=== PATIENT | male | born 1955 | race Caucasian/White ===

== ENCOUNTER → 2023-08-25 07:54 | Outpatient (REF) | payer BC, SELFPAY | LOC: DHVS 07:54 | PROVIDERS: ATTENDING PHYSICIAN Physician Assistant; FAMILY PHYSICIAN Student in an Organized Health Care Education/Training Program | DX: I73.9 Peripheral vascular disease, unspecified (principal) | CPT/HCPCS: 93922; 93925 ==

== ENCOUNTER 2024-08-26 06:23 | Day surgery (SDC) | payer BC, SELFPAY ==
[2024-08-26 12:16] LABS: Glucose - Point of Care 127 mg/dl (70-99)
== END 2024-08-26 13:08 | disposition home or self-care (01) ==
LOC: GI 06:23
PROVIDERS: ATTENDING PHYSICIAN Internal Medicine Gastroenterology
DX: Z12.11 Encounter for screening for malignant neoplasm of colon (principal); K64.8 Other hemorrhoids; K21.00 Gastro-esophageal reflux disease with esophagitis, without bleeding; K31.7 Polyp of stomach and duodenum; K29.70 Gastritis, unspecified, without bleeding; D12.5 Benign neoplasm of sigmoid colon; K63.5 Polyp of colon; D13.2 Benign neoplasm of duodenum; Z86.0100 Personal history of colon polyps, unspecified
CPT/HCPCS: 45380; 43239; 88305; 82962; 88342

== ENCOUNTER → 2024-08-29 08:08 | Outpatient (REF) | payer BC, SELFPAY | LOC: RAD 08:08 | PROVIDERS: ATTENDING PHYSICIAN Surgery Vascular Surgery; FAMILY PHYSICIAN Student in an Organized Health Care Education/Training Program | DX: I73.9 Peripheral vascular disease, unspecified (principal) | CPT/HCPCS: 93922; 93925 ==

== ENCOUNTER → 2024-09-16 12:20 | Outpatient (REF) | payer BC, SELFPAY ==
[2024-09-16 13:30] LABS: % Basophils 0.6 % (0-2); % Eosinophils 4.3 % (0-6); % Immature Granulocytes 0.3 % (0-0.5); % Lymphocytes 17.6 % (20.5-51.1); % Neutrophils 69.2 % (42.2-75.2); Absolute Basophils 0.1 10^3/uL (0-0.2); Absolute Eosinophils 0.4 10^3/uL (0-0.7); Absolute Lymphocytes 1.8 10^3/uL (1.2-3.4); Absolute Monocytes 0.8 10^3/uL (0.1-0.6); Absolute Neutrophils 6.9 10^3/uL (1.4-6.5); Hematocrit 36.2 % (39.0-52.0); Hemoglobin 11.5 g/dL (13.0-18.0); Mean Corp Hgb Conc. 31.8 g/dL (33.0-37.0); Mean Corpuscular Hgb 29.6 pg (27.0-31.0); Mean Corpuscular Volume 93.3 fL (80.0-94.0); Nucleated Red Blood Cells % 0 % (-); Platelet Count 201 10^3/uL (130-400); Red Blood Cell Count 3.88 10^6/uL (4.70-6.10); Red Cell Dist. Width 16.1 % (11.5-14.5)
[2024-09-16 14:01] LABS: Blood Urea Nitrogen 27 mg/dl (9-20); Calcium 9.8 mg/dl (8.4-10.2); Carbon Dioxide 23 mmol/L (22-30); Chloride 106 mmol/L (98-107); Glucose 168 mg/dl (70-99); Potassium 4.7 mmol/L (3.5-5.1); Sodium 144 mmol/L (135-145); eGFR > 60.00
[2024-09-16 14:03] LABS: NT-proBNP 2440 pg/ml
== END ==
LOC: RAD 12:20
PROVIDERS: ATTENDING PHYSICIAN Internal Medicine; FAMILY PHYSICIAN Student in an Organized Health Care Education/Training Program
DX: R06.02 Shortness of breath (principal); I48.0 Paroxysmal atrial fibrillation
CPT/HCPCS: 36415; 71046; 80048; 83880; 85025

== ENCOUNTER 2024-09-20 06:38 | Day surgery (SDC) | payer BC, SELFPAY ==
[2024-09-20 07:54] LABS: Glucose - Point of Care 99 mg/dl (70-99)
== END 2024-09-20 07:20 | disposition home or self-care (01) ==
LOC: CATH 06:38
PROVIDERS: ATTENDING PHYSICIAN Student in an Organized Health Care Education/Training Program; FAMILY PHYSICIAN Student in an Organized Health Care Education/Training Program; OTHER PHYSICIAN Student in an Organized Health Care Education/Training Program
DX: I48.0 Paroxysmal atrial fibrillation (principal); I11.0 Hypertensive heart disease with heart failure; I50.22 Chronic systolic (congestive) heart failure; E78.5 Hyperlipidemia, unspecified; I25.10 Atherosclerotic heart disease of native coronary artery without angina pectoris; I25.2 Old myocardial infarction; Z95.1 Presence of aortocoronary bypass graft; Z95.5 Presence of coronary angioplasty implant and graft; I25.5 Ischemic cardiomyopathy; I42.1 Obstructive hypertrophic cardiomyopathy; I08.2 Rheumatic disorders of both aortic and tricuspid valves; Z95.2 Presence of prosthetic heart valve; G47.33 Obstructive sleep apnea (adult) (pediatric); E11.9 Type 2 diabetes mellitus without complications; E03.9 Hypothyroidism, unspecified; Z85.828 Personal history of other malignant neoplasm of skin; Z87.891 Personal history of nicotine dependence; Z79.01 Long term (current) use of anticoagulants; Z79.02 Long term (current) use of antithrombotics/antiplatelets; Z79.84 Long term (current) use of oral hypoglycemic drugs
CPT/HCPCS: 93312; 93320; 93325; 82962

== ENCOUNTER 2024-10-30 06:46 | Day surgery (SDC) | payer BC, SELFPAY ==
--- NOTE | 2024-10-24 09:40 | HPS.HSE ---
Family Physician
-
Family Physician: Karyn Paige MD
Chief Complaint
-
Paroxysmal atrial fibrillation.
History of Present Illness
The patient is a 69-year-old male presenting today for paroxysmal atrial fibrillation. The patient reports a history of progressively worsening shortness of breath, especially with exertion, and rapid heart beats associated with this
diagnosis. He is on current pharmacological therapy with Metoprolol Succinate, which has been recently increased to 100 mg p.o. twice a day to treat his elevated heart rates. Cardiology recommended a BRANDI-guided cardioversion which was initially
scheduled for 09/20/2024. Unfortunately, his BRANDI revealed a left atrial appendage thrombus and his cardioversion was postponed. He has been compliant with Eliquis for oral anticoagulation since his BRANDI. He will undergo a repeat transesophageal
echocardiogram at this time to evaluate his left atrial appendage thrombus. Should his thrombus not be present, he will then proceed with a cardioversion. He denies any current complaints today such as chest pain, shortness of breath at rest,
nausea, vomiting, lightheadedness, dizziness, cough, sore throat, or fever.
Medical History
Past Medical History
Past Medical History: Reports Other
Additional Past Medical History:
1. Paroxysmal atrial fibrillation, pharmacological therapy with Metoprolol Succinate, oral anticoagulation with Eliquis.
2. Left atrial appendage thrombus on BRANDI 09/20/2024.
3. Hypertension.
4. Hyperlipidemia.
5. Coronary artery disease, status post CABG x 3 in 2008; subsequent STEMI, 07/2022, status post PCI with drug-eluting stent to OM1.
6. Chronic heart failure, reduced ejection fraction.
7. Ischemic cardiomyopathy.
8. PAD status post PCI of left SFA 2020.
9. Hypertrophic obstructive cardiomyopathy with ventricular fibrillation arrest, status post Medtronic ICD implantation 2020.
10. Severe aortic stenosis, status post TAVR 03/2023.
11. Mild-moderate tricuspid regurgitation.
12. Obstructive sleep apnea, compliant with CPAP.
13. Inj-zjggjub-fbacjhvqi diabetes.
14. Gastritis.
15. Gastric and colon polyps.
16. Hiatal hernia.
17. Hemorrhoids.
18. BETTS.
19. Chronic diarrhea secondary to Metformin.
20. Osteoarthritis.
21. Left-sided Goldman's palsy 2017.
22. Hypothyroidism.
23. Basal cell carcinoma, status post excision x2.
24. Mild anemia.
25. Remote tobacco abuse.
Past Surgical History: Reports Other
Additional Past Surgical History:
1. Transesophageal echocardiogram.
2. CABG x3.
3. PCI with drug-eluting stent to OM1.
4. Medtronic ICD implantation.
5. Balloon angioplasty and stenting of left SFA.
6. TAVR.
7. Multiple cardiac catheterizations.
8. Left knee arthroscopy x2.
9. Right rotator cuff debridement, subacromial decompression, and bone spur excision.
10. Bilateral cataract extraction.
11. Colonoscopy.
12. Endoscopy.
Social History
Tobacco: Former Smoker (He is a former 1 pack per day cigarette smoker who quit tobacco altogether in February 2000.)
Alcohol: Occasional
Living: Other (The patient lives in a 1 story home with his spouse.)
Family History
Family History: Not pertinent
Allergies / Home Medications
Allergy/Medication List:
Home medications:
1. Acetaminophen 1000 mg p.o. twice a day as needed.
2. Ascorbic acid 500 mg p.o. at bedtime.
3. Farxiga 10 mg p.o. daily.
4. Eliquis 5 mg p.o. twice a day.
5. Zetia 10 mg p.o. daily.
6. Ferrous sulfate 45 mg p.o. every other day.
7. Furosemide 20 mg p.o. daily.
8. Gemfibrozil 600 mg p.o. twice a day.
9. Glimepiride 2 mg p.o. daily.
10. Metformin 1000 mg p.o. twice a day.
11. Metoprolol succinate 100 mg p.o. twice a day.
12. Multivitamin 1 tablet p.o. daily.
13. [place]unnel[place]-3 1 capsule p.o. twice a day.
14. Rosuvastatin 40 mg p.o. daily.
15. Entresto 24-26 mg p.o. daily.
16. Levothyroxine 125 mcg p.o. daily at 6 AM.
Allergies: No known allergies.
Review of Systems
-
A 12 point ROS was completed and negative except as noted: Yes
Physical Exam
Vital Signs
Blood pressure 143/68. Heart rate 60. Respirations 18. Pulse ox 98% on room air.
Height 5 feet, 6 inches. Weight 78.9 kg. BMI 28.1.
Physical Exam
General: Well Developed, Well Nourished and No Apparent Distress
HEENT: NormoCephalic, Moist mucous membranes, Atraumatic and PERRLA
Respiratory: Clear
Cardiac: Irregular Rhythm
GI: Soft, Non Tender and Non Distended
Musculoskeletal: No Edema and Normal Gait & Station
Skin: Warm and Dry
Neuro: AO x 3 and Nonfocal/grossly intact
Laboratory Results
-
EKG 10/24/2024: Atrial fibrillation with slow ventricular response and occasional ventricular paced complexes. Nonspecific T wave abnormality.
Transesophageal echocardiogram 09/20/2024: Moderately reduced left ventricular systolic function. Ejection fraction is 35-40%. Septum and anterior wall are akinetic. Normal right ventricular size and systolic function. Thrombus in the left atrial
appendage. TAVR with normal gradients (14/6 mmHg) and no aortic regurgitation. Mild to moderate tricuspid regurgitation.
Impression/Plan
-
IMPRESSION/PLAN:
1. Paroxysmal atrial fibrillation: The patient will proceed with a transesophageal echocardiogram to assess his left atrial appendage thrombus on 10/30/[address] Benjamín Christiansen. Should his thrombus not be present, he will then proceed with a
cardioversion. The benefits and risks of both procedures have been explained to the patient. The patient understands these risks and wishes to proceed. He will hold his Farxiga 3 days prior. He will hold his Metformin, Glimepiride, and Furosemide
the morning of. He will continue his Eliquis up to and including the morning of his procedure.
[2024-10-24 09:41] VITALS: BMI 28.1
[2024-10-30 07:36] LABS: Glucose - Point of Care 93 mg/dl (70-99)
== END 2024-10-30 09:06 | disposition home or self-care (01) ==
LOC: CATH 06:46
PROVIDERS: ATTENDING PHYSICIAN Internal Medicine; FAMILY PHYSICIAN Student in an Organized Health Care Education/Training Program; OTHER PHYSICIAN Student in an Organized Health Care Education/Training Program
DX: I48.0 Paroxysmal atrial fibrillation (principal); R06.02 Shortness of breath; I25.10 Atherosclerotic heart disease of native coronary artery without angina pectoris; I11.0 Hypertensive heart disease with heart failure; I50.22 Chronic systolic (congestive) heart failure; I42.1 Obstructive hypertrophic cardiomyopathy; I08.2 Rheumatic disorders of both aortic and tricuspid valves; I25.2 Old myocardial infarction; G47.33 Obstructive sleep apnea (adult) (pediatric); E78.5 Hyperlipidemia, unspecified; E11.9 Type 2 diabetes mellitus without complications; K75.81 Nonalcoholic steatohepatitis (NASH); E03.9 Hypothyroidism, unspecified; Z85.828 Personal history of other malignant neoplasm of skin; Z86.0100 Personal history of colon polyps, unspecified; Z95.5 Presence of coronary angioplasty implant and graft; Z95.1 Presence of aortocoronary bypass graft; Z95.2 Presence of prosthetic heart valve; Z87.891 Personal history of nicotine dependence; Z79.01 Long term (current) use of anticoagulants; Z79.84 Long term (current) use of oral hypoglycemic drugs
CPT/HCPCS: 93312; 93320; 93325; 82962; 93005

== ENCOUNTER 2024-12-25 07:37 | Day surgery (SDC) | payer BC, SELFPAY ==
[2024-12-18 11:03] VITALS: BMI 26.3
[2024-12-25 08:37] LABS: Glucose - Point of Care 127 mg/dl (70-99)
== END 2024-12-25 10:26 | disposition home or self-care (01) ==
LOC: CATH 07:37
PROVIDERS: ATTENDING PHYSICIAN Student in an Organized Health Care Education/Training Program; FAMILY PHYSICIAN Student in an Organized Health Care Education/Training Program; OTHER PHYSICIAN Student in an Organized Health Care Education/Training Program
DX: I48.0 Paroxysmal atrial fibrillation (principal); I11.0 Hypertensive heart disease with heart failure; I50.22 Chronic systolic (congestive) heart failure; I25.10 Atherosclerotic heart disease of native coronary artery without angina pectoris; Z95.1 Presence of aortocoronary bypass graft; I25.2 Old myocardial infarction; I21.3 ST elevation (STEMI) myocardial infarction of unspecified site; Z95.5 Presence of coronary angioplasty implant and graft; I25.5 Ischemic cardiomyopathy; I35.0 Nonrheumatic aortic (valve) stenosis; Z95.2 Presence of prosthetic heart valve; Z95.810 Presence of automatic (implantable) cardiac defibrillator; Z86.74 Personal history of sudden cardiac arrest; Z86.79 Personal history of other diseases of the circulatory system; G47.33 Obstructive sleep apnea (adult) (pediatric); Z87.891 Personal history of nicotine dependence; E03.9 Hypothyroidism, unspecified; D50.9 Iron deficiency anemia, unspecified; E11.51 Type 2 diabetes mellitus with diabetic peripheral angiopathy without gangrene; E78.5 Hyperlipidemia, unspecified; Z79.02 Long term (current) use of antithrombotics/antiplatelets; Z79.84 Long term (current) use of oral hypoglycemic drugs; Z79.890 Hormone replacement therapy; Z79.899 Other long term (current) drug therapy
CPT/HCPCS: 93312; 93320; 93325; 82962; 92960; 93005

== ENCOUNTER 2025-01-30 06:03 | Day surgery (SDC) | payer BC, SELFPAY ==
[2025-01-30] VITALS (8 sets, daily range): BP systolic 128–159; BP diastolic 55–82; BMI 27.3
[2025-01-30 09:28] LABS: Glucose - Point of Care 182 mg/dl (70-99)
[2025-01-30 12:49] LABS: Glucose - Point of Care 241 mg/dl (70-99)
--- NOTE | 2025-01-30 12:50 | HPS.HSE ---
Family Physician
-
Family Physician: NOT KNOW UNKNOWN - PT DOES
Chief Complaint
-
ERCP
History of Present Illness
69-year-old male past medical history of CAD status post CABG in 2008, chronic HFrEF with ischemic cardiomyopathy, severe aortic stenosis status post TAVR in 2022, V-fib arrest status post ICD, paroxysmal atrial fibrillation, left atrial appendage
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 He denies any preceding
weight loss, abdominal pain, blood in the stool.
He underwent endoscopic ampullectomy and ERCP with biliary/pancreatic stent placement today. No complications after the procedure.
He is a former smoker. Drinks alcohol occasionally. Denies drugs.
No recent chest pain or shortness of breath or lower extremity edema or dizziness.
Medical History
Past Medical History
Past Medical History: Reports Other (CAD status post CABG in 2008, chronic HFrEF with ischemic cardiomyopathy, severe aortic stenosis status post TAVR in 2022, V-fib arrest status post ICD, paroxysmal atrial fibrillation, left atrial appendage
thrombus, hypertension, hyperlipidemia, diabetes, PAD status post stents, obstructive sleep a)
Past Surgical History: Reports None
Social History
Tobacco: Former Smoker
Alcohol: Occasional
Drug: None
Family History
Family History: Not pertinent
Allergies / Home Medications
Allergies reflects when Allergies were last updated in [employer].
Home Medications with original date entered in [employer]
Allergy/Medication List:
Allergies
Allergy/AdvReac Type Severity Reaction Status Date / Time
No Known Allergies Allergy Verified 01/30/25 09:24
Home Medications
gemfibrozil 600 mg tablet 600 mg PO BID Heart disease/condition 12/20/19
glimepiride 2 mg tablet 2 mg PO DAILY Diabetes 12/20/19
metoprolol succinate 50 mg tablet,extended release 24 hr (Toprol XL) 100 mg PO BID Blood pressure 12/20/19
rosuvastatin 20 mg tablet 40 mg PO HS High cholesterol 12/20/19
metformin 1,000 mg tablet 1,000 mg PO BID Diabetes 10/27/21
acetaminophen 500 mg tablet (Tylenol Extra Strength) 1,000 mg (2 x 500 mg) PO BID PRN Pain #0 tabs 08/09/22
ascorbic acid (vitamin C) 1,000 mg tablet (Vitamin C) 1,000 mg PO HS 04/19/23
furosemide 20 mg tablet 20 mg PO DAILY 04/19/23
ezetimibe 10 mg tablet 10 mg PO DAILY 09/17/24
sacubitril 24 mg-valsartan 26 mg tablet (Entresto) 1 tab PO BID 09/17/24
levothyroxine 125 mcg tablet 125 mcg PO DAILY@0600 09/18/24
omega 9-brv-kke-fish oil 1,200 mg (144 mg-216 mg) capsule (Fish Oil) 1 cap PO BID 09/18/24
dabigatran etexilate 150 mg capsule 150 mg PO BID 12/16/24
ferrous sulfate 137 mg (45 mg iron) tablet,extended release (Slow Fe) 137 mg PO Q48H 12/16/24
dapagliflozin propanediol 10 mg tablet (Farxiga) 10 mg PO DAILY 01/30/25
iifeoxdx-say-ypyjr 150 mcg-vit K1 30 mcg-lycop 300 mcg-lutein tablet (Centrum Minis Men 50 Plus) 1 tab PO BID 01/30/25
omeprazole 40 mg capsule,delayed release 40 mg PO DAILY 01/30/25
Review of Systems
-
History Source: Patient
A 12 point ROS was completed and negative except as noted: Yes
Constitutional: Reports No Symptoms
EENT: Reports No Symptoms
Respiratory: Reports No Symptoms
Cardiac: Reports No Symptoms
Abdomen/GI: Reports No Symptoms
: Reports No Symptoms
Musculoskeletal: Reports No Symptoms
Skin: Reports No Symptoms
Neurological: Reports No Symptoms
Endocrine: Reports No Symptoms
Hematologic/Lymphatic: Reports No Symptoms
Psych: Reports No Symptoms
Physical Exam
Vital Signs
Vital Signs
Temp Pulse Resp BP Pulse Ox
97.2 F 70 17 133/57 99
01/30/25 12:26 01/30/25 12:30 01/30/25 12:30 01/30/25 12:30 01/30/25 12:30
Physical Exam
General: Well Developed, Well Nourished and No Apparent Distress
HEENT: NormoCephalic, Moist mucous membranes and Atraumatic
Respiratory: Clear
Cardiac: S1/S2 and Regular Rhythm; No Murmur or Rub
GI: Soft, Non Tender, Non Distended and Normal Bowel Sounds; No Organomegaly
Rectal: Deferred by Provider
Musculoskeletal: No Clubbing, No Cyanosis and No Edema
Skin: No Rash
Neuro: Nonfocal/grossly intact
Data Reviewed
-
Lab Data: Labs Reviewed by me
Old Records: Reviewed
Impression/Plan
-
IMPRESSION:
PLAN:
# Ampullary adenoma status post endoscopic ampullectomy/ERCP with biliary/pancreatic stents placed
- No complications during the intervention
- Monitoring overnight given medical history
- Clear liquid diet until tomorrow
-GI following
CAD status post CABG in 2008
- Pradaxa for A-fib to be held for 48 hours
Chronic HFrEF/ischemic cardiomyopathy
- Continue dapagliflozin
- Continue Lasix
- Continue Entresto
Severe aortic stenosis status post TAVR 2022
History of V-fib arrest status post ICD
Paroxysmal atrial fibrillation
- Pradaxa to be held for 48 hours
- Continue metoprolol
History of left atrial appendage thrombus
- Resolved as of BRANDI December of this year
PAD status post stents
Essential hypertension
Hyperlipidemia
- Continue Zetia, gemfibrozil, statin
Type 2 diabetes
- Hold metformin, glimepiride
- Insulin sliding scale
Obstructive sleep apnea
History of tobacco use
Hypothyroidism
- Continue levothyroxine
GERD
- Continue omeprazole
Full code
DVT prophylaxis�SCDs
Clear liquid diet
[2025-01-30 16:33] LABS: Glucose - Point of Care 151 mg/dl (70-99)
[2025-01-30] MEDS: ENTRESTO 24 MG/26 MG 1 TAB PO (20:08)
[2025-01-30] MEDS: THERAGRAN 1 TABLET PO (20:08)
[2025-01-30] MEDS: TOPROL XL 100 MG PO (20:09)
[2025-01-30 21:25] LABS: Glucose - Point of Care 161 mg/dl (70-99)
[2025-01-30] MEDS: VITAMIN C 1000 MG PO (21:39)
[2025-01-30] MEDS: CRESTOR 40 MG PO (21:39)
[2025-01-31] MEDS: SYNTHROID 125 MCG PO (06:05)
[2025-01-31 07:31] LABS: Glucose - Point of Care 129 mg/dl (70-99)
[2025-01-31 07:46] VITALS: BP 139/59
[2025-01-31 07:57] LABS: Hematocrit 35.6 % (39.0-52.0); Hemoglobin 12.0 g/dL (13.0-18.0); Mean Corp Hgb Conc. 33.7 g/dL (33.0-37.0); Mean Corpuscular Volume 88.1 fL (80.0-94.0); Nucleated Red Blood Cells % 0 % (-); Platelet Count 172 10^3/uL (130-400); Red Cell Dist. Width 15.8 % (11.5-14.5)
[2025-01-31] MEDS: PROTONIX 40 MG PO (08:22)
[2025-01-31] MEDS: ENTRESTO 24 MG/26 MG 1 TAB PO (08:22)
[2025-01-31] MEDS: LASIX 20 MG PO (08:22)
[2025-01-31] MEDS: THERAGRAN 1 TABLET PO (08:22)
[2025-01-31] MEDS: FEOSOL 325 MG PO (08:22)
[2025-01-31] MEDS: ZETIA 10 MG PO (08:23)
[2025-01-31] MEDS: FARXIGA 10 MG PO (08:23)
[2025-01-31] MEDS: TOPROL XL 100 MG PO (08:23)
[2025-01-31 08:28] LABS: ALT (SGPT) 21 U/L (0-50); AST (SGOT) 20 U/L (17-59); Albumin 4.6 g/dl (3.5-5.0); Alkaline Phosphatase 59 U/L (38-126); Blood Urea Nitrogen 21 mg/dl (9-20); Calcium 9.3 mg/dl (8.4-10.2); Carbon Dioxide 21 mmol/L (22-30); Chloride 109 mmol/L (98-107); Estimated Creatinine Clearance 89 ml/min; Glucose 117 mg/dl (70-99); Potassium 4.4 mmol/L (3.5-5.1); Sodium 141 mmol/L (135-145); Total Protein 7.0 g/dl (6.3-8.2); eGFR > 60.00
[2025-01-31 08:54] LABS: Glycohemoglobin (HgbA1c) 6.0 % (4.0-5.6)
[2025-01-31 11:34] VITALS: BP 136/97
--- NOTE | 2025-01-31 11:53 | W.PN.UPDATE ---
Update Note
Progress Note Update
No complaints post ampullectomy
Denies abd pain
For d/c today
Our office will arrange EGD in couple weeks to remove biliary stent
== END 2025-01-31 12:17 | disposition home or self-care (01) ==
LOC: GI 06:03
PROVIDERS: Hospitalist; ATTENDING PHYSICIAN Internal Medicine Gastroenterology; CONSULT PHYSICIAN Internal Medicine Gastroenterology
DX: D13.2 Benign neoplasm of duodenum (principal); D13.5 Benign neoplasm of extrahepatic bile ducts; Z79.02 Long term (current) use of antithrombotics/antiplatelets
CPT/HCPCS: 43274; 43278; 43251; 74330; 76000; 80053; 82962; 83036; 85025; 88305; 94660; C1769; C2617; C2625; G0378

== ENCOUNTER 2025-02-14 06:09 | Day surgery (SDC) | payer BC, SELFPAY ==
[2025-02-14 07:05] VITALS: BMI 26.7
[2025-02-14 07:10] VITALS: BP 140/59
[2025-02-14 07:25] VITALS: BMI 26.7
[2025-02-14 07:43] LABS: Glucose - Point of Care 169 mg/dl (70-99)
[2025-02-14 08:47] VITALS: BP 106/41
[2025-02-14 09:00] VITALS: BP 113/65
[2025-02-14 09:06] VITALS: BP 117/46
== END 2025-02-14 09:15 | disposition home or self-care (01) ==
LOC: GI 06:09
PROVIDERS: ATTENDING PHYSICIAN Internal Medicine Gastroenterology
DX: K31.89 Other diseases of stomach and duodenum (principal); Z46.59 Encounter for fitting and adjustment of other gastrointestinal appliance and device
CPT/HCPCS: 43270; 43247; C1874; 82962

== ENCOUNTER 2025-03-31 06:13 | Day surgery (SDC) | payer BC, SELFPAY ==
[2025-03-17 10:31] LABS: Hematocrit 36.5 % (39.0-52.0); Hemoglobin 12.0 g/dL (13.0-18.0); Mean Corp Hgb Conc. 32.9 g/dL (33.0-37.0); Mean Corpuscular Volume 91.9 fL (80.0-94.0); Nucleated Red Blood Cells % 0 % (-); Platelet Count 157 10^3/uL (130-400); Red Cell Dist. Width 15.7 % (11.5-14.5)
[2025-03-17 10:58] LABS: ALT (SGPT) 24 U/L (0-50); AST (SGOT) 17 U/L (17-59); Albumin 4.7 g/dl (3.5-5.0); Alkaline Phosphatase 55 U/L (38-126); Blood Urea Nitrogen 22 mg/dl (9-20); Calcium 9.1 mg/dl (8.4-10.2); Carbon Dioxide 22 mmol/L (22-30); Chloride 105 mmol/L (98-107); Glucose 184 mg/dl (70-99); Potassium 4.3 mmol/L (3.5-5.1); Sodium 140 mmol/L (135-145); Total Protein 7.1 g/dl (6.3-8.2); eGFR > 60.00
[2025-03-17 13:50] VITALS: BMI 28.7
[2025-03-31] VITALS (16 sets, daily range): BP systolic 84–144; BP diastolic 47–84
[2025-03-31 07:05] LABS: Glucose - Point of Care 166 mg/dl (70-99)
[2025-03-31] MEDS: NSS 500 IV (07:08)
--- NOTE | 2025-03-31 09:51 | ITS.CL.ABL ---
[employer] [facility] - Ablation
Ablation
Procedure Report:
AFIB / Flutter ablation:
Mr. Hennessy is a very pleasant 70 yr old gentleman with h/o CAD (CABG, 2008 - BAILEY-LAD, SVG-OM1 and SVG-OM3), STEMI 07/2022 s/p GORAN to OM1, ischemic catdiomyopathy NYHA class III, h/o VF arrest s/p nelson single chamber ICD, recent EF at 35%,
severe s/p TAVR 2022, PAD s/p stents to left lower ext, HTN, MR, HLD, and AYALA and persistent atrial fibrillation and atrial flutters presented today to the EP lab for atrial fibrillation / flutter ablation.
Date of Procedure:
03/31/2025
Indications:
Recurrent atrial fibrillation / atrial flutter
Pre-Operative Diagnosis:
Persistent atrial fibrillation /Atrial flutter
Post-Operative Diagnosis:
Persistent atrial fibrillation /Atrial flutter
Procedure Performed:
Typical atrial flutter with Cavo tricuspid isthmus (CTI) ablation
Atrial fibrillation ablation with pulmonary vein isolation
Left atrial flutter � roof dependent ablation
Posterior wall isolation
Mitral isthmus ablation for basim-mitral flutter ablation
Performing Physician:
Raquel Dixon MD
Assistants:
EP staff
Anesthesia:
See anesthesia records
Detailed Description of the Procedure:
Written informed consent was obtained from the patient after a full explanation of the risks and benefits of the procedure including the risks of sedation and anesthesia.
The patient was brought to the electrophysiology laboratory in stable condition in fasting state. Continuous electrocardiographic and hemodynamic monitoring was initiated.
The initial rhythm was atrial flutter.
Time out:
The procedure site was meticulously prepared with surgical scrub and allowed to dry with no pooling. Sterile draping was applied to cover the procedure site. The image intensifier was draped with sterile bag and positioned over the patient.
Prior to the start of the procedure a surgical pause was performed with in agreement from anesthesia, EP staff with double identifier and explanation of the procedure, plan and site of the procedure stated with allergies and medications and
pertinent labs reviewed.
After infusion of local anesthetic, vascular access was obtained under ultrasound guidance and sheaths were placed over guide wire as detailed below. The images were stored in patient chart.
Sheaths:
Agilis sheath in right femoral vein upgraded from 8Fr in right femoral vein
9Fr in right femoral vein
7Fr in right femoral vein
Catheters:
The Affera Sphere 9 catheter -bidirectional D/F - at locations of HRA, RV, LA and LV.
ICE catheter - at locations of RA, SVC, and RV.
Bard decapolar catheter � In RA and CS
A 7000 units of heparin was given
Intracardiac ECHO:
An 8-Khmer AcuNav intracardiac ECHO (ICE) probe was advanced through the 9-Khmer sheath in the right femoral vein into the right atrium under fluoroscopic and ICE ultrasound image guidance and a baseline ECHO study was performed. The left atrial
size was severely dilated. There was trace tricuspid regurgitation. There was mild mitral regurgitation. There was severely reduced left ventricular systolic function. There is no pericardial effusion. All the four veins were identified and has good
flow identified. No definite clot seen.
During the procedure, ICE was used for monitoring of complications, guidance of trans-septal puncture, monitor the catheter position and tracking ablation lesions. No change in the pericardial space noted throughout the procedure.
Electroanatomic mapping of the right atrium:
A J-tipped guidewire was advanced through the 8-Khmer sheath in the right femoral vein into the superior vena cava under fluoroscopic and ICE guidance. The 8-Khmer sheath was exchanged for an Agilis sheath which was advanced into the superior vena
cava.
Using the Sphere 9 Affera catheter advanced through Agilis sheath into the right atrium, an electroanatomic map (EAM) of the right atrium was created using the [employer] mapping system with [employer] software mapping system.
There was borderline normal HV conduction noted at baseline at 55 ms.
Ablation # 1: Typical Atrial Flutter Ablation:
The CTI ablation was done using radiofrequency with Affera sphere -9 ablation, open irrigation, force-sensing bidirectional ablation catheter in the cavotricuspid isthmus from the tricuspid annulus to the IVC ridge. Once the ablation catheter reach
near the IVC, the ablation energy was changed to pulsefield.
-Bidirectional block was confirmed across the CTI line with differential pacing.
-Double potentials were spaced greater than 120msec apart.
-The conduction time across the CTI line from proximal CS pacing was 218 msec.
-EAM of the right atrium was obtained with coronary sinus pacing and showed a line of block at the CTI.
-The time interval just lateral to the ablation lesions was 218 msec and the lateral wall was 112 msec
- All these maneuvers confirmed the block at the CTI line.
- Post ablation HV interval was unchanged at 55msec
Then attention was given to atrial fibrillation ablation.
Trans-septal Puncture:
Heparin was initiated and infused to maintain appropriate ACT. A J-tipped guidewire was advanced through into the superior vena cava under fluoroscopic and ICE guidance. The Agilis sheath was advanced into the superior vena cava over a guidewire. A
BRK needle with stylet was advanced inside the Agilis sheath. The apparatus was withdrawn until it was in contact with the fossa ovalis. The position was adjusted based on fluoroscopy and ultrasound images from ICE. Under fluoroscopic, hemodynamic
and ICE ultrasound guidance, left atrium was cannulated by advancing the needle. Once atrial septum was cannulated, the needle was pulled back and the guide wire was advanced through the needle into the left atrium. The guide wire was advanced into
the left superior pulmonary vein. Both the sheath and the dilator was advanced into the left atrium. The dilator with the needle was withdrawn. Blood was aspirated from the Agilis sheath and arterial blood confirmed. The sheath was flushed. Saline
injection noted into the left atrium on ICE. The waveform of the LA pressure was recorded. The mapping catheter was advanced in the Agilis sheath into the left pulmonary vein.
3D Electroanatomic Mapping:
Using the Sphere 9 Affera catheter advanced through Agilis sheath into the left atrium, an electroanatomic map (EAM) of the left atrium was created using [employer] mapping system with Prism-1 software. The map was used for localization of catheter
position and tacking of ablation lesions.
The EAM of the left atrium showed a total of 4 PVs with two left and two right sided pulmonary veins. There was extensive scarring noted in the LA. The posterior wall had scattered signals. The LA was dilated.
Following the EAM, preparation were made for ablation.
Ablation:
Ablation # 1: Atrial fibrillation ablation - Pulmonary vein Isolation:
Pulsed field ablation was performed using an open irrigation, bidirectional, contact sensing, dual energy ablation catheter ([employer] sphere -9) by completing the circumferential lesions around the left and right pulmonary veins achieving pulmonary
vein isolation.
Ablation # 2: Roof line Formation:
There was a clear channel of electrical activity left in the posterior wall with multiple CFAE and AF areas on the roof and ablation in that area increased the risk of atrial flutter and decision was made to create a roof line to block a slow
conduction. A set of pulsed field ablations were placed on the roof line connecting the left superior pulmonary vein ablation lesions to the right superior pulmonary vein lesions rings.
Ablation # 3: Posterior wall isolation with the Box lesions set Formation:
There was a significant fractionation seen in the posterior wall and LA AF foci along with CFAE made it clear as the posterior wall is critical in maintaining the atrial fibrillation and the decision was made to isolate the posterior wall by
creating a �Box� lesions.
A set of Pulsed field ablations were placed on the floor line connecting the left inferior pulmonary vein ablation lesions to the right inferior pulmonary vein lesions rings.
Z line formation:
A series of ablations were placed ont he posterior wall connecting the LSPV to the RIPV across the posterior wall.
Ablation # 4: Mitral isthmus ablation for basim-mitral flutter ablation
Patient has hx of atypical flutters and significant scarring noted in the LA making the mitral flutter extremely likely. Decision was made to create a line of block at mitral isthmus.
Mitral line was done for the mitral isthmus from the left inferior PV antrum to the lateral mitral annulus. The pulsed field ablations were placed at the isthmus and switched to radiofrequency once close to the mitral annulus.
Confirmation of the PVI and bidirectional block:
Following achievement of entrance block at the pulmonary veins, pacing from the Sphere 9 affera catheter in each of the four veins at 10 milliamps for 4 milliseconds showed entrance and exit block.
The LA was mapped with The Affera� mapping system with [employer] software in sinus rhythm confirming the line of block at the ablation lesions lines.
All PVI were rechecked at the end of the case. Entrance and exit block were demonstrated.
Then the attention was diverted to typical atrial flutter.
Electroanatomic mapping of the right atrium:
Using the Sphere 9 Affera catheter advanced through Agilis sheath into the right atrium, an electroanatomic map (EAM) of the right atrium was created using the [employer] mapping system with [employer] software mapping system.
The CTI line was noted to have conduction thorugh the previous line and additional ablations were placed to create the line of block at the CTI.
Procedure End
ICE study was done again that showed no epicardial accumulation. No complications noted.
Following the completion of the EP study, catheters were removed. Protamine 40 mg was given at the end of the procedure and ACT was checked repeatedly. The sheaths were removed and hemostasis achieved with Fig of 8 suture and manual compression.
Left atrial Pressure:
Pre-Procedure: Mean LA pressure was 36mmHg
Pre-Procedure: Mean RA pressure was 26mmHg
Post-Procedure: Mean LA pressure was 35mmHg
Post-Procedure: Mean RA pressure was 26mmHg
Fluoro Time:
2.5 min
Estimated Blood loss:
<10 cc
Specimens Removed:
None.
Implants / Devices:
None
Urine output:
None
Packs / Drains/ Tubes:
None
Instrument / Sponge Count Correct:
Yes
Complications of the Procedure:
None
Condition of Patient at Time of Transfer:
Hemodynamically stable with no neurological or vascular compromise.
Summary:
Successful atrial fibrillation ablation with pulmonary vein isolation, roof flutter ablation, posterior wall isolation, Mitral flutter ablaiton, Typical CTI flutter ablation,
[2025-03-31 10:24] LABS: Glucose - Point of Care 209 mg/dl (70-99)
--- NOTE | 2025-03-31 14:16 | W.PN.UPDATE ---
Update Note
Progress Note Update
Pt seen post PFA/Flutter ablation. Right groin site without ht/bleeding, oob ambulating. Post EKG NSR w/1st deg AVB as before, no acute changes. Resume dabigatran tonight at usual time. Followup at [facility] in 2 weeks as scheduled. Home today if groin
site/tele remain stable.
== END 2025-03-31 15:05 | disposition home or self-care (01) ==
LOC: CATH 06:13
PROVIDERS: ATTENDING PHYSICIAN Internal Medicine Cardiovascular Disease; FAMILY PHYSICIAN Student in an Organized Health Care Education/Training Program; OTHER PHYSICIAN Student in an Organized Health Care Education/Training Program
DX: I48.19 Other persistent atrial fibrillation (principal); I48.92 Unspecified atrial flutter; I47.10 Supraventricular tachycardia, unspecified; I25.2 Old myocardial infarction; E11.51 Type 2 diabetes mellitus with diabetic peripheral angiopathy without gangrene; I25.10 Atherosclerotic heart disease of native coronary artery without angina pectoris; I50.22 Chronic systolic (congestive) heart failure; I11.0 Hypertensive heart disease with heart failure; I42.2 Other hypertrophic cardiomyopathy; Z95.810 Presence of automatic (implantable) cardiac defibrillator; I25.5 Ischemic cardiomyopathy; I35.0 Nonrheumatic aortic (valve) stenosis; Z95.2 Presence of prosthetic heart valve; G47.33 Obstructive sleep apnea (adult) (pediatric); E78.5 Hyperlipidemia, unspecified; E03.9 Hypothyroidism, unspecified; Z87.891 Personal history of nicotine dependence; Z79.82 Long term (current) use of aspirin; Z79.899 Other long term (current) drug therapy; Z79.890 Hormone replacement therapy; Z79.01 Long term (current) use of anticoagulants; Z86.74 Personal history of sudden cardiac arrest; Z86.79 Personal history of other diseases of the circulatory system; D50.9 Iron deficiency anemia, unspecified; Z79.84 Long term (current) use of oral hypoglycemic drugs; Z95.5 Presence of coronary angioplasty implant and graft; Z95.1 Presence of aortocoronary bypass graft
CPT/HCPCS: C1733; C1769; C1894; C1766; C1892; C1759; 36415; 80053; 82962; 85025; 85347; 86850; 86900; 86901; 93005; 93655; 93656; 93657; C1730

== ENCOUNTER → 2025-05-20 14:28 | Outpatient (REF) | payer BC, SELFPAY | LOC: RAD 14:28 | PROVIDERS: ATTENDING PHYSICIAN Student in an Organized Health Care Education/Training Program; FAMILY PHYSICIAN Student in an Organized Health Care Education/Training Program | DX: I73.9 Peripheral vascular disease, unspecified (principal) | CPT/HCPCS: 93922 ==

== ENCOUNTER → 2025-05-22 11:13 | Outpatient (REF) | payer BC, SELFPAY | LOC: HWRCS 11:13 | PROVIDERS: ATTENDING PHYSICIAN Student in an Organized Health Care Education/Training Program; FAMILY PHYSICIAN Student in an Organized Health Care Education/Training Program | DX: I50.20 Unspecified systolic (congestive) heart failure (principal) | CPT/HCPCS: 93306 ==

== ENCOUNTER 2025-06-03 14:53 | Inpatient (IN) | payer MEDICARE, BC, SELFPAY ==
--- NOTE | 2025-05-29 16:54 | PTCARENOTE ---
Abnormal ECG done 03/31/25, reviewed by Dr De, no further interventions requested.
[2025-06-03] VITALS (36 sets, daily range): BP systolic 81–194; BP diastolic 42–106; BMI 28.0
[2025-06-03 07:00] LABS: Hematocrit 37.0 % (39.0-52.0); Hemoglobin 12.6 g/dL (13.0-18.0); Mean Corp Hgb Conc. 34.1 g/dL (33.0-37.0); Mean Corpuscular Volume 90.0 fL (80.0-94.0); Platelet Count 204 10^3/uL (130-400); Red Cell Dist. Width 15.3 % (11.5-14.5)
[2025-06-03] MEDS: NSS 500 IV (07:00)
[2025-06-03 07:02] LABS: Glucose - Point of Care 149 mg/dl (70-99)
[2025-06-03 07:06] LABS: INR 1.16; PT 14.9 Sec (11.4-14.6)
[2025-06-03 07:07] LABS: APTT 29.8 Sec (23.4-35.0)
[2025-06-03 07:14] LABS: Blood Urea Nitrogen 22 mg/dl (9-20); Calcium 9.2 mg/dl (8.4-10.2); Carbon Dioxide 19 mmol/L (22-30); Chloride 104 mmol/L (98-107); Estimated Creatinine Clearance 75 ml/min; Glucose 154 mg/dl (70-99); Potassium 4.8 mmol/L (3.5-5.1); Sodium 137 mmol/L (135-145); eGFR > 60.00
--- NOTE | 2025-06-03 07:30 | W.SUR.PREOP ---
Pre-Operative Surgical Note
-
I have examined this patient prior to the performance of the scheduled procedure.
The patient's condition is unchanged from the time of the current History and
Physical and the patient is able to undergo the scheduled procedure.
[2025-06-03 09:01] LABS: ACT-LR - POC 194 Seconds (116-155)
[2025-06-03 09:51] LABS: Glucose - Point of Care 174 mg/dl (70-99)
[2025-06-03] MEDS: HEPARIN 25000 UNITS/250 ML IV (10:29)
--- NOTE | 2025-06-03 10:47 | OR.RPT ---
Operative Report
Operative Report
Date of Operation: 06/03/2025
Pre Op Diagnosis:
1. 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
2. Limb threatening ischemia, left lower extremity
3. Diabetes with peripheral artery occlusive disease and left toe ulcerations
4. Known peripheral arterial occlusive disease with previously placed left superficial femoral artery stents
Post Op Diagnosis:
1. 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
2. Limb threatening ischemia, left lower extremity
3. Diabetes with peripheral artery occlusive disease and left toe ulcerations
4. Known peripheral arterial occlusive disease with previously placed left superficial femoral artery stents
Procedure:
1. Intravascular lithotripsy to left distal anterior tibial artery (Shockwave Javelin)
2. Balloon angioplasty of left dorsalis pedis artery (2 mm x 100 mm angioplasty balloon)
3. Balloon angioplasty of left anterior tibial artery (2.5 mm x 220 mm angioplasty balloon)
4. Balloon angioplasty and stenting of left superficial femoral artery stent occlusion (6 mm x 15 cm and 6 mm x 5 cm overlapping Viabahn stent grafts)
5. Diagnostic aortobiiliac arteriogram
6. Diagnostic left lower extremity arteriogram
7. Ultrasound-guided percutaneous access to the right common femoral artery
Surgeon: Jhon Geller III, MD
Anesthesia: Sedation with local
Fluoroscopy:
36.4 min
104 mGy
25.83 gy.cm2
Complications: None
Estimated Blood Loss: Less than 20 cc
History and Indications for Procedure: 70-year-old male with diabetes and peripheral arterial occlusive disease. He developed limb threatening ischemia of his left lower extremity manifested by a nonhealing left hallux wound, plantar surface wound
on the third toe and associated cellulitis. He was brought to the operating room for endovascular intervention.
Procedure in Detail: Sixto Hennessy was correctly identified and placed supine on the operating table. After adequate induction of anesthesia the bilateral groins were prepped and draped in the usual sterile fashion. A timeout was performed with the
nursing and anesthesia staff confirming the patient's identity as well as the nature and laterality of the procedure.
The right common femoral artery was identified under ultrasound guidance. The artery was patent. The superior and inferior aspects of the femoral head were identified with radiographic guidance and marked at the skin level. The proposed puncture
site was infiltrated with local anesthesia. Under ultrasound guidance we accessed the right common femoral artery with a micropuncture needle and upsized to a 5 Fr sheath over a [employer] wire. The wire and a [employer] AS hook flush catheter were
advanced into the distal abdominal aorta and a diagnostic aorto-biiliac arteriogram was performed:
AORTO-ILIAC ARTERIOGRAM:
Aorta: Patent with no significant stenosis identified
Right common iliac artery: Patent with mild stenosis
Right external iliac artery: Patent with mild stenosis
Left common iliac artery: Patent with no significant stenosis identified patent with no significant stenosis identified
Left external iliac artery: [ ]
Under roadmap guidance using a Glidewire and the Shepherds hook catheter we selected the left common iliac artery followed by the external iliac artery and then the common femoral artery. A catheter was tracked up and over the aortic bifurcation and
placed in the common femoral artery. A diagnostic left lower extremity arteriogram was then performed which demonstrated the following:
LEFT LOWER EXTREMITY:
Common femoral artery: Patent with no significant stenosis identified
Profunda femoral artery: Patent with no significant stenosis identified
Superficial femoral artery: Patent proximally. Stents occluded in the mid to distal SFA.
Popliteal artery: Reconstituted via profunda collaterals. Patent with no significant stenosis identified
Anterior tibial artery: Patent. Dominant tibial artery runoff vessel. Proximal stenosis identified. Distal anterior tibial artery extending into the dorsalis pedis artery was calcified and heavily diseased with areas of focal occlusion and
high-grade stenosis
Tibioperoneal trunk: Patent
Peroneal artery: Patent
Posterior tibial artery: Occluded. Reconstitution of plantar branches in the foot identified.
ENDOVASCULAR INTERVENTION: Systemic heparin was administered. Exchanged out for a 6 Fr 45 cm sheath over a Storq wire. Selected the superficial femoral artery under roadmap guidance. The occluded stents were crossed with a Quickcross and Glidewire.
The wire and catheter were advanced into the popliteal artery and subtraction angio confirmed proper position in the true lumen. Exchanged out for a V18 wire. A 5 mm angioplasty balloon was then used across the occluded stents to create a lumen. I
then followed this with overlapping Viabahn stent grafts. A 6 mm x 15 cm Viabahn stent graft was positioned distally across the occluded stents and deployed. I then extended proximally with a 6 mm x 5 cm Viabahn stent graft, overlapping slightly
with the initial stent. The entire length of newly placed stents were profiled with a 5 mm angioplasty balloon. Subsequent arteriogram demonstrated an excellent technical result with widely patent stents, brisk flow and no residual stenosis
identified.
I then focused my attention on the tibial disease given the presence of limb threatening ischemia. Under roadmap guidance I selected the anterior tibial artery using a Quickcross and Glidewire. I navigated distally with this set up. I then
exchanged out for a 0.014 Mongo wire and 0.014 Quickcross. Under roadmap guidance and magnification view I was able to navigate through the distal anterior tibial artery and dorsalis pedis artery disease. I was able to advance the wire into the
pedal arch. Due to the heavily calcified nature of the anterior tibial artery and dorsalis pedis artery disease and in an effort to successfully cross the lesions, modify the calcium and achieve luminal gain with endovascular intervention I elected
to proceed with intravascular lithotripsy with a Shockwave Javelin catheter. The Javelin catheter was brought into position under radiographic guidance over the 0.014 wire to the distal anterior tibial artery. The Javelin catheter was advanced up to
the distal anterior tibial artery near the ankle sulcus where there was obvious calcified plaque. I could not pass the javelin catheter beyond this area. 70 pulses were delivered at this point. I then removed the Javelin catheter. I then
advanced a 2 mm x 40 mm angioplasty balloon across the distal anterior tibial artery and into the dorsalis pedis artery. I performed balloon angioplasty on the dorsalis pedis artery and distal anterior tibial artery using this balloon. 3 separate
inflations were performed to treat the entire length at nominal pressure with a 2-minute inflation for each treated segment. Following this I then returned back down with the javelin catheter in an attempt to deliver additional lithotripsy pulses
more distal to the dorsalis pedis artery. Unfortunately I was unable to advance the javelin catheter further beyond the distal anterior tibial artery. The remaining 50 pulses were delivered to the distal anterior tibial artery calcified lesion.
Following this I then returned back down with a 2 mm x 100 mm angioplasty balloon. I performed balloon angioplasty on the length of dorsalis pedis artery and distal anterior tibial artery. The balloon was positioned in the desired location,
inflated to nominal pressure and held in place for a 3-minute inflation before slowly deflating and removing over the wire. The remaining anterior tibial artery was treated with a 2.5 mm x 220 mm angioplasty balloon. The entire length of the
anterior tibial artery was treated with this balloon. 2 separate inflations were performed at nominal pressure for 2-minute inflations at each segment. The balloon was then deflated and removed over the wire.
COMPLETION ARTERIOGRAM: Excellent technical result. Patent anterior tibial artery and dorsalis pedis artery with significantly improved flow compared to pretreatment. Flow into the foot was significantly improved compared to pretreatment.
Satisfied with this result we concluded the procedure. The sheath tip was pulled back into the right external iliac artery. Protamine was administered.
The patient tolerated the procedure well and was taken to the recovery area in stable condition with the plan to pull the sheath in the recovery area. The patient had a robust pulsatile Doppler signal over the dorsalis pedis artery at the
conclusion of the case..
Signed:
Jhon Geller III, MD
Vascular Surgery
[facility]
--- NOTE | 2025-06-03 10:48 | W.PN.UPDATE ---
Addendum entered and electronically signed by CARLOTA Rodrigez 06/03/25 12:36:
Notified by recovery room nurse that patient had returned of DP Doppler signal, reexamined patient at bedside with attending Dr. Jhon Geller III and was able to easily find Doppler DP and AT signal. Given return of signal and improvement in
patient's foot color, warmth, and less than 3-second capillary refill will opt to not bring patient back to the OR for lower extremity angiogram. Will continue to monitor patient overnight in ICU for every hour neurochecks and continue heparin
infusion, if change in pulse exam will then possibly consider returning to operating room.
Original Note:
Update Note
Progress Note Update
Notified by HOUSEKEEPING AIDE via [employer] text that she had loss of signal of DP at left foot, immediately responded to bedside. Could not find DP or AT signal via Doppler, notified attending Dr. Jhon Geller III who then accompanied at bedside as well.
Attending could also not find a DP signal, additionally foot was cold with cap refill greater than 3 seconds. Concern for ischemic changes to left foot. Decision made to take patient back emergently following current case on the table for left
lower extremity angiogram with possible lysis. . N.p.o. Heparin infusion initiated. Family notified by attending. Will admit patient to the ICU following procedure for every hour neurovascular checks.
[2025-06-03] MEDS: NITRO-BID 1 INCH TOPICAL (11:15)
--- NOTE | 2025-06-03 11:35 | PTCARENOTE ---
Patient complains of foot 'feeling on fire'. Burning pain that comes and goes. Gómez schuler d/c per ACCOUNT EXECUTIVE METALWORKING for pain. After 15 mins burning pain still persists. Nitro paste wiped off of foot without change in burning pain. ACCOUNT EXECUTIVE METALWORKING and MD at bedside to
assess Left foot. Pulse still obtainable by Doppler. MD requests ICU bed for close monitoring of pulse in Left foot.
[2025-06-03] MEDS: NSS 1000 IV (12:13)
[2025-06-03] MEDS: LOW STRENGTH ASPIRIN 81 MG PO (12:34)
--- NOTE | 2025-06-03 14:53 | CON.INTV ---
Consultation
Consultation Request
Date/Time Consultation Requested: 06/03/2025
Date/Time Consultation Performed: 06/03/2025
Requesting Provider: Baylee Gatica
Performing Provider: Dr. Avendano
Reason for Consultation: PAD s/p arteriogram balloon angioplasty and stenting of left leg
Medical History
-
Chief Complaint: PAD s/p arteriogram balloon angioplasty and stenting of left leg
History of Present Illness:
Mr. Hennessy 70-year-old male with a history of persistent atrial fibrillation on Pradaxa, Aflutter, SVT. He has a significant cardiac history which includes CAD s/p CABG x 3 2008, STEMI and is s/p GORAN 2022 chronic HFrEF echo 05/2025 with EF 50-55%,
aortic stenosis s/p TAVR in 2022, VFib arrest s/p Medtronic ICD placement. He also has HTN, HLD, rtz-mrpssul-xxciwjqvd diabetes, PAD s/p stent 2020, obstructive sleep apnea, and hypothyroidism. Patient was admitted to the hospital for angiogram and
angioplasty and stenting of the left lower extremity due to atherosclerosis with nonhealing left hallux ulceration and third toe plantar surface ulceration along with associated cellulitis. Postprocedure patient was placed on heparin drip and
admitted to the ICU. In the ICU patient had loss of DP signal which returned shortly. Initial vitals showed BP 138/56 pulse 56 RR 19 temp 97.2 satting at 99% on room air. Labs on admission showed WBC 9.3 Hgb 12.6 BUN 22 creatinine 0.8. Patient
was seen at the bedside after surgery this afternoon, reports doing well with no fevers chills headache chest pain shortness of breath nausea vomiting abdominal pain. Patients reports some neuropathy of the LE due.
Past Medical History
Past Medical History: Arrhythmias (Atrial flutter, SVT, V-fib arrest s/p ICD), CAD (S/p CABG 2008, STEMI s/p GORAN 2002), CHF (HFrEF), HTN, Hypercholesterolemia, Hypothyroidism, NIDDM, Valvular Disease (Aortic stenosis s/p TAVR 2002) and Other (PAD
s/p stenting, AYALA, ampullary adenoma s/p biliary pancreatic stent)
Past Surgical History: Cardiac (CABG 2002, GORAN 2022, TAVR 2022, V-fib s/p ICD, cardiac ablation 2024), Orthopedic (Shoulder, knee arthroscopy) and Other (PAD s/p stenting)
Social History
Tobacco: Former Smoker (Quit 1999)
Alcohol: Occasional
Drug: None
Family History
Family History: Reviewed & Not Pertinent
Allergies / Home Medications
Allergies
Allergy/AdvReac Type Severity Reaction Status Date / Time
No Known Allergies Allergy Verified 06/03/25 06:37
Home Medications
�Medication �Instructions �Recorded �Confirmed �Last Taken �Type
gemfibrozil 600 mg tablet 600 mg PO BID Heart 12/20/19 06/03/25 06/03/25 04:00 History
disease/condition
glimepiride 2 mg tablet 2 mg PO DAILY Diabetes 12/20/19 06/03/25 06/02/25 08:00 History
metoprolol succinate 50 mg 100 mg PO BID Blood pressure 12/20/19 06/03/25 06/03/25 04:00 History
tablet,extended release 24 hr
(Toprol XL)
rosuvastatin 20 mg tablet 40 mg PO HS High cholesterol 12/20/19 06/03/25 06/02/25 08:00 History
metformin 1,000 mg tablet 1,000 mg PO BID Diabetes 10/27/21 06/03/25 06/02/25 08:00 History
acetaminophen 500 mg tablet 1,000 mg (2 x 500 mg) PO BID PRN 08/09/22 06/03/25 06/03/25 04:00 Rx
(Tylenol Extra Strength) Pain #0 tabs
sacubitril 24 mg-valsartan 26 mg 1 tab PO BID 09/17/24 06/03/25 06/02/25 08:00 History
tablet (Entresto)
levothyroxine 125 mcg tablet 125 mcg PO DAILY@0600 09/18/24 06/03/25 06/03/25 04:00 History
omega 3-qdq-onr-fish oil 1,200 mg 1 cap PO BID 09/18/24 06/03/25 05/30/25 20:00 History
(144 mg-216 mg) capsule (Fish Oil)
ferrous sulfate 137 mg (45 mg 137 mg PO Q48H 12/16/24 06/03/25 05/29/25 20:00 History
iron) tablet,extended release
(Slow Fe)
dapagliflozin propanediol 10 mg 10 mg PO DAILY 01/30/25 06/03/25 05/31/25 08:00 History
tablet (Farxiga)
ujnrtzje-ozi-hptkj 150 mcg-vit K1 1 tab PO BID 01/30/25 06/03/25 05/30/25 20:00 History
30 mcg-lycop 300 mcg-lutein tablet
(Centrum Minis Men 50 Plus)
omeprazole 40 mg capsule,delayed 40 mg PO DAILY 01/30/25 06/03/25 06/01/25 08:00 History
release
ezetimibe 10 mg tablet 10 mg PO DAILY 02/14/25 06/03/25 06/02/25 08:00 History
dabigatran etexilate 150 mg 150 mg PO BID 03/17/25 06/03/25 05/31/25 20:00 History
capsule (Pradaxa)
furosemide 20 mg tablet 40 mg (2 x 20 mg) PO DAILY #0 tabs 03/31/25 06/03/25 06/02/25 08:00 Rx
clindamycin HCl 300 mg capsule 300 mg PO TID 05/30/25 06/03/25 06/02/25 08:00 History
Review of Systems
-
History Source: Patient
All other systems: Negative unless noted
Vitals / Labs / Diagnostic Testing
Vital Signs
Temp Pulse Resp BP Pulse Ox
98.9 F 84 18 135/61 96
06/03/25 09:37 06/03/25 14:00 06/03/25 14:00 06/03/25 13:56 06/03/25 14:00
Lab Data
06/03/25 06:48
06/03/25 06:48
Laboratory Results
06/03/25 06/03/25 06/03/25
06:48 10:22 14:30
PT 14.9 H
INR 1.16
APTT 29.8 Cancelled Cancelled
Diagnostic Testing:
Physical Exam
-
HEENT: Normocephalic and Anicteric
Cardiovascular: S1/S2 and Regular Rhythm
Respiratory: Clear and Non-Labored Respirations
GI: Soft, Non Distended, Non Tender and Normal Bowel Sounds
Neurology: Awake and Alert
Skin: Warm and Dry
General: Comfortable
Exam:
Incision site right femoral access CDI.
Assessment
-
#Surgical
PAD s/p stenting LLE
PAOD
Cellulitis of L great toe s/p topical abx
previous LLE SFA stents failed
- continue ASA
- continue Statin
- Heparin drip
#Neurologic
Pain: mild neuropathic foot pain
Analgesia: Oxycodone 5 as needed
Mentation: at baseline AAO x 3
Activity:bedrest
#Cardiovascular
Maintain MAP> 65
Pressors: none
QTc:
HFrEF
Last echo 05/2025 EF 50-55%
On Farxiga furosemide metoprolol Entresto
- Continue Entresto
- Continue furosemide
- Continue Farxiga
Permanent A-fib
On Pradaxa
s/p ablation
- hold pradaxa
- Continue heparin drip
#Respiratory
O2 requirements:
Sedation:
Home O2:
Blood gas:
AYALA
on CPAP nightly
-CPAP 8
#Gastrointestinal
Diet: N.p.o.
Stooling regimen:
Tubes: None
Antiemetics:
GI PPx: Pantoprazole 40
Hyperlipidemia
-Continue rosuvastatin
-Continue Zetia
-Continue gemfibrozil
#Renal
Geller: Yes
Urine output: 80 mL/h
IVF: NSS at 80
Electrolytes: K>4 Mg>2
Na 137
K 4.8
Mag
#Infectious
WBC 9.3
ABX:
Microbiology:
Antipyretics: tylenol prn
#Hematologic
DVT PPx: Heparin drip
Hemoglobin: 12.6
PT
INR
PTT pending
#Endocrine
Maintain euglycemia with goal BG 140�180
Diabetes type 2
-hold metformin
-continue glimepiride
- ISS moderate
Hypothyroidism
-continue levothyroxine
#
#Access
Central:
None
Peripheral:
Left arm 20-gauge
CODE STATUS: Full code
[2025-06-03 15:52] LABS: Glucose - Point of Care 250 mg/dl (70-99)
[2025-06-03] MEDS: NOVOLOG FLEXPEN-MODERATE RESISTANCE 5 UNITS SC (16:33)
[2025-06-03 16:49] LABS: APTT 51.7 Sec (23.4-35.0)
[2025-06-03] MEDS: TOPROL XL 100 MG PO (18:28)
--- NOTE | 2025-06-03 18:44 | SUR.OPER ---
pt reported needing to use bowels after dinner. aware that he is not allowed oob. agreed to bedpan. after turning and repositioning in bed, mildly sob and HR in 100s. Pt concerned. He took metoprolol early this am. gave evening dose of
metoprolol early.
[2025-06-03] MEDS: ENTRESTO 24 MG/26 MG 1 TAB PO (19:25)
[2025-06-03] MEDS: THERAGRAN 1 TABLET PO (19:25)
[2025-06-03] MEDS: TYLENOL 650 MG PO (20:46)
[2025-06-03] MEDS: PROTONIX IV 40 MG IV (20:46)
[2025-06-03] MEDS: NSS (PRESERVATIVE FREE) 10 ML IV (20:46)
[2025-06-03] MEDS: NITROSTAT (SUBLINGUAL) 0.4 MG SL ×2 (20:47→20:58)
[2025-06-03 20:51] LABS: Hematocrit 37.1 % (39.0-52.0); Hemoglobin 12.8 g/dL (13.0-18.0); Mean Corp Hgb Conc. 34.5 g/dL (33.0-37.0); Mean Corpuscular Volume 89.6 fL (80.0-94.0); Platelet Count 203 10^3/uL (130-400); Red Cell Dist. Width 15.5 % (11.5-14.5)
--- NOTE | 2025-06-03 21:03 | PTCARENOTE ---
Pt with elevated heart rate and BP-received toprol xl at approx 1830. Entresto given at 1925. Pt c/o chest 'discomfort' 10/19 at approx 2015. Discussed with ground intelligence officer ADJUNCT PHYSICS INSTRUCTOR-EKG done prior to this for ICU admission orders and given to ADJUNCT PHYSICS INSTRUCTOR. Also
discussed with vascular surgery. Blood work sent to lab. PCXR done. Pt given protonix IV, tylenol and NTG 0.4mg SL x2 with reduction in pain from 5 to 1. Peripheral pulses still obtainable with doppler-see flow sheet. Assessment as charted.
[2025-06-03 21:11] LABS: D-Dimer 12.76 ug/mlFEU (0.00-0.50)
[2025-06-03 21:27] LABS: Troponin I 0.435 ng/ml
[2025-06-03 21:35] LABS: ALT (SGPT) 32 U/L (0-50); AST (SGOT) 30 U/L (17-59); Albumin 4.9 g/dl (3.5-5.0); Alkaline Phosphatase 60 U/L (38-126); Blood Urea Nitrogen 21 mg/dl (9-20); Calcium 9.0 mg/dl (8.4-10.2); Carbon Dioxide 19 mmol/L (22-30); Chloride 104 mmol/L (98-107); Estimated Creatinine Clearance 86 ml/min; Glucose 251 mg/dl (70-99); Potassium 4.8 mmol/L (3.5-5.1); Sodium 135 mmol/L (135-145); Total Protein 8.0 g/dl (6.3-8.2); eGFR > 60.00
[2025-06-03 21:40] LABS: Glucose - Point of Care 266 mg/dl (70-99)
[2025-06-03] MEDS: CRESTOR 40 MG PO (21:45)
--- NOTE | 2025-06-03 21:45 | CON.CAR ---
Consultation
Consultation Request
Date/Time Consultation Requested: 06/03/2025
Date/Time Consultation Performed: 06/03/2025
Requesting Provider: Dr. Geller
Performing Provider: Dr. Smith
Reason for Consultation: Chest pain
Medical History
-
Chief Complaint: Chest pain
History of Present Illness:
70-year-old male with coronary artery disease (CABG 2008, STEMI GORAN-OM1 2022), chronic HFrEF/ischemic cardiomyopathy (LVEF 35-40%),�severe aortic stenosis status-post TAVR (2022), apical HCM with VF arrest s/p Medtronic subcutaneous ICD (2020),
paroxysmal atrial fibrillation s/p A-fib ablation (with Dr. Dixon on 03/31/2025), TAYLA thrombus, hypertension, hyperlipidemia, diabetes, peripheral arterial disease and mild obesity.� Patient underwent intravascular lithotripsy to left distal
anterior tibial artery earlier today. A few hours after the procedure, he began to experience chest pain, 5/10. The chest pain has improved to 2/10 with nitroglycerin and administration of Toprol-XL; however, the pain has not completely subsided.
His EKG shows slightly progressive ST/T abnormality in the anterior leads with reciprocal changes laterally compared to previous EKG.
Past Medical History
Past Medical History: Arrhythmias (HCM with VF arrest status-post ICD (2020), PAF status-post ablation (03/2025)), CAD (CABG 2008, subsequent GORAN to OM1 in 2022), CHF (EF 35-40%), HTN, Hypercholesterolemia and Valvular Disease (Status-post TAVR
(2022))
Past Surgical History: Cardiac (CABG, TAVR, ICD, A-fib ablation) and Orthopedic (Right shoulder procedure)
Social History
Tobacco: Former Smoker
Alcohol: Occasional
Drug: None
Personal:
Living: With Family
Family History
Family History: Reviewed & Not Pertinent
Allergies / Home Medications
Allergy/AdvReac Type Severity Reaction Status Date / Time
No Known Allergies Allergy Verified 06/03/25 06:37
�Medication �Instructions �Recorded �Confirmed �Type
gemfibrozil 600 mg tablet 600 mg PO BID Heart 12/20/19 06/03/25 History
disease/condition
glimepiride 2 mg tablet 2 mg PO DAILY Diabetes 12/20/19 06/03/25 History
metoprolol succinate 50 mg 100 mg PO BID Blood pressure 12/20/19 06/03/25 History
tablet,extended release 24 hr
(Toprol XL)
rosuvastatin 20 mg tablet 40 mg PO HS High cholesterol 12/20/19 06/03/25 History
metformin 1,000 mg tablet 1,000 mg PO BID Diabetes 10/27/21 06/03/25 History
acetaminophen 500 mg tablet 1,000 mg (2 x 500 mg) PO BID PRN 08/09/22 06/03/25 Rx
(Tylenol Extra Strength) Pain #0 tabs
sacubitril 24 mg-valsartan 26 mg 1 tab PO BID 09/17/24 06/03/25 History
tablet (Entresto)
levothyroxine 125 mcg tablet 125 mcg PO DAILY@0600 09/18/24 06/03/25 History
omega 4-evh-oib-fish oil 1,200 mg 1 cap PO BID 09/18/24 06/03/25 History
(144 mg-216 mg) capsule (Fish Oil)
ferrous sulfate 137 mg (45 mg See Rx Instructions .Route .COMPLEX 12/16/24 06/03/25 History
iron) tablet,extended release
(Slow Fe)
dapagliflozin propanediol 10 mg 10 mg PO DAILY 01/30/25 06/03/25 History
tablet (Farxiga)
usgkbrsj-ggb-qzfck 150 mcg-vit K1 1 tab PO BID 01/30/25 06/03/25 History
30 mcg-lycop 300 mcg-lutein tablet
(Centrum Minis Men 50 Plus)
omeprazole 40 mg capsule,delayed 40 mg PO DAILY 01/30/25 06/03/25 History
release
ezetimibe 10 mg tablet 10 mg PO DAILY 02/14/25 06/03/25 History
dabigatran etexilate 150 mg 150 mg PO BID 03/17/25 06/03/25 History
capsule (Pradaxa)
clindamycin HCl 300 mg capsule 300 mg PO TID 05/30/25 06/03/25 History
furosemide 20 mg tablet 20 mg PO DAILY 06/03/25 06/03/25 History
Review of Systems
-
History Source: Patient
All other systems: Negative unless noted
Physical Exam
Vital Signs
Temp Pulse Resp BP Pulse Ox
98.8 F 103 21 138/76 93
06/03/25 19:25 06/03/25 21:06 06/03/25 21:06 06/03/25 21:06 06/03/25 21:06
Lab Results
06/03/25 20:40
06/03/25 20:40
Troponin I 0.435 ng/ml H* 06/03/25 20:40
Physical Exam
General: No Apparent Distress
HEENT: Anicteric
Respiratory: Clear
Cardiac: S1/S2, Regular Rhythm and Murmur (Soft 2/6 systolic murmur)
Breast: N/A
GI: Soft and Non Tender
Rectal: Deferred by Provider
Musculoskeletal: No Edema
Skin: Warm
Neuro: AO x 3
Psych: Calm
Impression / Plan
-
70-year-old male with coronary artery disease (CABG 2008, STEMI GORAN-OM1 2022), chronic HFrEF/ischemic cardiomyopathy (LVEF 35-40%),�severe aortic stenosis status-post TAVR (2022), apical HCM with VF arrest s/p Medtronic subcutaneous ICD (2020),
paroxysmal atrial fibrillation s/p A-fib ablation (with Dr. Dixon on 03/31/2025), TAYLA thrombus, hypertension, hyperlipidemia, diabetes, peripheral arterial disease and mild obesity.� Patient underwent intravascular lithotripsy to left distal
anterior tibial artery earlier today. A few hours after the procedure, he began to experience chest pain, 5/10. The chest pain has improved to 2/10 with nitroglycerin and administration of Toprol-XL; however, the pain has not completely subsided.
His EKG shows slightly progressive ST/T abnormality in the anterior leads with reciprocal changes laterally compared to previous EKG.
Unstable angina/NSTEMI:
- The patient has continued chest pain despite administration of nitroglycerin, beta-antonio, and heparin drip.
- Progressive ST/T changes on EKG.
- Given acuity of situation, urgent cardiac catheterization is recommended now; case discussed with Interventional Cardiology and patient will be taken to the [facility] at this time--per discussion with Vascular Surgeon this evening, no
contraindication to proceeding.
- Will start nitroglycerin drip for now.
CAD/CABG:
- Unstable angina as above; proceeding to [facility] today.
Ischemic cardiomyopathy (LVEF 35-40%):
- Compensated on examination.
TAVR (2022):
- Clinically stable.
ICD:
- Stable.
PAF:
-Stable status-post ablation (03/31/2025).
Hypertension:
- Blood pressure was notably elevated earlier; now improved.
- Nitroglycerin as above.
Data Reviewed
-
EKG: Tracing Personally Visualized and interpreted (Sinus rhythm, possible [address] elevation in aVR and V1 with reciprocal changes in lateral leads.)
Labs: Labs Reviewed by me and Discussed with Physician (Hospitalist CAR[facility], Interventional Cardiology, Vascular Surgery )
Old Records: Reviewed (Cardiology office visit on 04/10/2025)
Critical Care Time (in minutes): 80
[2025-06-03] MEDS: NITROGLYCERIN PREMIX 250 IV (21:46)
--- NOTE | 2025-06-03 22:12 | PTCARENOTE ---
Dr. Smith in to see pt. Repeat EKG done. NTG gtt infusing at 10mcg.
--- NOTE | 2025-06-03 22:52 | PTCARENOTE ---
To cath lab radiology technician via bed with cath lab radiology technician staff
--- NOTE | 2025-06-03 23:52 | ITS.CL.CATH ---
[facility] - Catheterization
Cardiac Catheterization
Procedure Report:
LEFT HEART CATHETERIZATION
Date of Procedure: 06/03/2025
Procedures performed:
1: Coronary angiography
2: Saphenous vein and left internal mammary artery bypass graft angiography
3: Left ventricular hemodynamic assessment
Referring Cutter Helper: Dr. Javier Smith
INDICATION: The patient is a 70-year-old man with a complex past medical history including extensive coronary artery disease status post CABG and most recently stenting of the vein graft to the circumflex OM in 2022, status post TAVR, PAD status
post complex left leg percutaneous revascularization procedure by Dr. Geller performed via right common femoral artery approach earlier today who developed chest pain at approximately 6 PM. EKG showed no clear ST elevation but did show diffuse ST
depressions. This was associated with tachycardia and hypertension. The patient was given IV nitroglycerin and beta-antonio therapy and his symptoms have improved but he was continuing to report low-level pain and in light of his ongoing symptoms
was referred for emergency cardiac catheterization. On arrival to the [facility] he was complaining of no chest pain and was hemodynamically stable.
ACCESS: The patient was prepped and draped in usual sterile fashion. A 6 Montenegrin sheath was placed in the left common femoral artery using the Seldinger over the wire technique. Ultrasound guidance and a micropuncture kit was used. Initial
attempts to puncture the right groin under ultrasound guidance with micropuncture was not easily successful due to some soft hematoma from the earlier access so I elected to move to the left side which under ultrasound appeared widely patent.
HEMODYNAMIC FINDINGS (mmHg):
LV(s/d,EDP): 137/20, 33
Ao(s/d,m): 137/66, 103
ANGIOGRAPHIC FINDINGS:
Single-plane Left Ventriculography in MCNEAL Projection: Not done.
Coronary Angiography:
Dominance: Right.
The patient has self-expanding transcatheter aortic valve in place. The kobuk right is known to be proximally occluded and the kobuk left has a limited vascular territory as per the cath in 2022 prior to TAVR. I made some cursory attempts to
engage the kobuk left main but were not readily successful so I did not attempt to image further.
BAILEY to LAD: The graft and anastomosis is widely patent. It fills a medium caliber LAD that has mild diffuse nonobstructive luminal irregularities. There is retrograde filling the LAD that has diffuse 60 to 70% disease and jeopardizes a fairly
large diagonal branch which also fills and is widely patent. There are extensive septal collaterals noted with qsxa-oq-hzwrz filling of the nongrafted dominant RCA system. There are also collaterals noted filling the distal circumflex faintly.
SVG to proximal OM: The graft itself appears widely patent. There is a hazy 80 to 90% stenosis that appears to be at the proximal edge of the previously placed long small caliber stent extending into the major distal OM. This stent has diffuse
severe in-stent restenosis with a functional occlusion through the last third of the stented segment. There is slow antegrade flow into several 1 to 1.5 mm diameter vessels with collateral filling of a more proximal OM noted. There also appears to
be very faint competitive flow in the distal portion of the major stented vessel. No evidence of dye staining or definitive evidence for ACS/clot.
SVG to distal OM: The ostium has a smooth tapered 40% stenosis with no evidence of dampening with catheter engagement using a 6 Montenegrin JR4. The body of the graft is widely patent as is the distal anastomosis. There is retrograde filling of a
smaller OM noted.
Other angiography:
1: Angiography through the micropuncture sheath showed that the insertion site was above the distal bifurcation and the calcified left common femoral artery. There did appear to be some distal disease just above or involving the bifurcation with
brisk flow into both the profunda and the SFA. I felt this was reasonable to except a 6 Montenegrin Angio-Seal.
Fluoroscopy Time (min): 4.5
Radiation Dose (mGy): 321
DAP (Gy.cm2): 22
Closure device: 6 Montenegrin Angio-Seal to left common femoral artery.
Complications: None.
ASSESSMENT:
1: Severe kobuk and bypass graft disease as described above. There is clearly been severe in-stent restenosis in the long small caliber stent placed in 2022. No clear ACS. Given the fact that the patient was chest pain-free I did not feel that
intervening on this small severely diseased vessel was vogel or clearly indicated. If he has refractory symptoms to medical therapy this could be revisited but I believe the long-term patency of any intervention in this diffusely diseased small
vessel would be very low.
2: Elevated left ventricular filling pressures.
CONCLUSIONS and RECOMMENDATIONS:
1: Aggressive medical therapy for coronary artery disease with IV nitroglycerin, beta-antonio, and will plan to give a dose of IV Lasix once back in the ICU.
2: Close follow-up with vascular surgery as planned. I will resume heparin in 4 hours without a bolus. Both groins appeared stable at the end of the procedure and the patient was chest pain-free.
Mario Longoria M.D.
[2025-06-04] VITALS (22 sets, daily range): BP systolic 99–135; BP diastolic 47–105; BMI 27.9
--- NOTE | 2025-06-04 00:13 | PTCARENOTE ---
Pt return from cath lab radiology technician. Groin sites and peripheral pulses checked with cath lab radiology technician staff. Groin sites soft to palpation. Dressings dry and intact. All pulses obtainable with doppler. Heparin on hold. IV fluids d/c.
[2025-06-04] MEDS: NSS IV (00:16)
--- NOTE | 2025-06-04 04:26 | PTCARENOTE ---
Heparin restarted at 1700 units as ordered at 0400. Assessment unchanged.
[2025-06-04 05:02] LABS: Blood Urea Nitrogen 17 mg/dl (9-20); Calcium 8.2 mg/dl (8.4-10.2); Carbon Dioxide 21 mmol/L (22-30); Chloride 109 mmol/L (98-107); Estimated Creatinine Clearance 86 ml/min; Glucose 150 mg/dl (70-99); Potassium 4.1 mmol/L (3.5-5.1); Sodium 137 mmol/L (135-145); eGFR > 60.00
[2025-06-04 05:09] LABS: Hematocrit 31.8 % (39.0-52.0); Hemoglobin 10.8 g/dL (13.0-18.0); Mean Corp Hgb Conc. 34.0 g/dL (33.0-37.0); Mean Corpuscular Volume 92.2 fL (80.0-94.0); Platelet Count 159 10^3/uL (130-400); Red Cell Dist. Width 15.7 % (11.5-14.5)
[2025-06-04] MEDS: HEPARIN 25000 UNITS/250 ML IV (05:15)
[2025-06-04] MEDS: SYNTHROID 125 MCG PO (05:15)
[2025-06-04] MEDS: NOVOLOG FLEXPEN-MODERATE RESISTANCE 1 UNITS SC ×2 (07:47→14:57)
--- NOTE | 2025-06-04 07:54 | W.PN.VS ---
Addendum entered and electronically signed by Jhon Geller III, MD 06/04/25 08:27:
This patient was seen and examined in collaboration with CAR[facility] Rm. I agree with the history and physical exam as well as the assessment and plan. I have the following additions:
Events from overnight noted
Discussed with Dr. Longoria this AM
Patient currently chest pain-free
No complaints
Would like to get out of bed
Denies pain in the left foot
On exam his left foot is warm and pink with brisk cap refill in the toes
Monophasic Doppler signal in the left dorsalis pedis artery
A more robust signal is identified in the distal AT about the ankle which is in keeping with his arteriogram findings
Excellent pulsatile Doppler signal left popliteal artery
Soft groin access sites bilaterally
Transition over to oral anticoagulation
Discuss additional recommendations with cardiology today
OK for OOB/ambulate from vascular perspective
Signed:
Jhon Geller III, MD
Vascular Surgery
[facility]
Original Note:
Today's Communication / Plan
-
Seen and assessed with Dr. Geller
Assessment/Plan
-
Postop day 1 left lower extremity arteriogram with intervention
Postop day 0.5 diagnostic cardiac cath
Plan:
Follow-up lactic acid, troponin
Out of bed/ambulate with help
Appreciate cardiology recommendations
Continue heparin drip for now
Subjective Data
-
Date of Service: June 04, 2025
Patient seen at bedside this a.m. with Dr. Geller. Patient offers no complaints this time. Patient was taken to cardiac House [facility] for catheterization for chest pain overnight. Continues on heparin and nitro drip this morning
Objective Data
-
Vital Signs
Temp Pulse Resp BP Pulse Ox
97.7 F 75 16 124/47 96
06/04/25 03:32 06/04/25 06:00 06/04/25 06:00 06/04/25 06:00 06/04/25 06:00
Intake and Output
06/03/25 06/04/25 06/05/25
06:59 06:59 06:59
Intake Total 1115.2 / 1115.2
Output Total 1850 / 1850
Balance -734.8 / -734.8
Intake:
Oral fluids 720 / 720
IV fluids (Total) 395.2 / 395.2
Nss 1,000 ml @ 80 mls/hr IV . 160 / 160
[id number] FRANCHESCA Rx#:[id number]
heparin 223.2 / 223.2
nitro 12.0 / 12.0
Output:
Urine, Voided 1849
Lab Results
06/04/25 04:01
06/04/25 04:01
Calcium 8.2 mg/dl (8.4-10.2) L 06/04/25 04:01
Total Bilirubin 0.6 mg/dl (0.2-1.3) 06/03/25 20:40
Direct Bilirubin 0.3 mg/dl (0.0-0.4) 06/03/25 20:40
AST 30 U/L (17-59) 06/03/25 20:40
ALT 32 U/L (0-50) 06/03/25 20:40
Alkaline Phosphatase 60 U/L (38-126) 06/03/25 20:40
Total Protein 8.0 g/dl (6.3-8.2) 06/03/25 20:40
Albumin 4.9 g/dl (3.5-5.0) 06/03/25 20:40
Physical Exam
-
AO x 3
No tachypnea on room air
No tachycardia at this time
Abdomen soft
Bilateral groin puncture sites clean, dry, intact, soft, flat
Left foot with Doppler DP and popliteal signals
[2025-06-04] MEDS: AMARYL 2 MG PO (08:00)
[2025-06-04] MEDS: THERAGRAN 1 TABLET PO ×2 (08:01→19:56)
[2025-06-04] MEDS: PROTONIX 40 MG PO (08:01)
[2025-06-04] MEDS: LOW STRENGTH ASPIRIN 81 MG PO (08:01)
[2025-06-04] MEDS: FEOSOL 325 MG PO (08:02)
[2025-06-04] MEDS: LASIX 20 MG PO (08:02)
[2025-06-04] MEDS: ENTRESTO 24 MG/26 MG 1 TAB PO ×2 (08:02→19:55)
[2025-06-04] MEDS: FARXIGA 10 MG PO (08:03)
[2025-06-04] MEDS: TOPROL XL 100 MG PO ×2 (08:03→19:56)
[2025-06-04] MEDS: ZETIA 10 MG PO (08:03)
--- NOTE | 2025-06-04 08:05 | PTCARENOTE ---
0700 assumed care. patient in bed; Nitro at 10cmg and Heparin at 1700/17
Patient AAO x 3 Denies chest pain or discomfort. Denies nausea; Nitro decreased to 5 mcg/0.8 ; Will send LA and troponin per order. Next PTT at 10:00
[2025-06-04 08:06] LABS: Glucose - Point of Care 168 mg/dl (70-99)
--- NOTE | 2025-06-04 08:20 | W.PN.INTV ---
Today's Communication / Plan
Recommendations
DC hep gtt
DC nitro gtt
restart doac per vascular
restart BB per cards
transfer to tele
Assessment
-
#Surgical
PAD s/p stenting LLE
PAOD
Cellulitis of L great toe s/p topical abx
previous LLE SFA stents failed
1. Intravascular lithotripsy to left distal anterior tibial artery ([employer] [place])
2. Balloon angioplasty of left dorsalis pedis artery (2 mm x 100 mm angioplasty balloon)
3. Balloon angioplasty of left anterior tibial artery (2.5 mm x 220 mm angioplasty balloon)
4. Balloon angioplasty and stenting of left superficial femoral artery stent occlusion
- continue ASA
- continue Statin
- DC Heparin drip
- restart pradaxa per vascular
#Neurologic
Pain:
Analgesia: Oxycodone 5 as needed
Mentation: at baseline AAO x 3
Activity: OOB
#Cardiovascular
Maintain MAP> 65
Pressors: none
QTc: 463
EKG: sinus tachy with ST/T abnormality
Cardiology following
Elevated troponin
type II KS
chest pain post op
EKG with ST/T wave abnl
s/p LHC severe koyuk and bypass graft disease severe in-stent restenosis but no clear ACS
s/p nitro drip DC'd per cards
Home with sublingual nitro
-trend troponin to peak 0.435->7.28
- DC heparin gtt
-Continue beta-antonio
- Sublingual nitro as needed
HFrEF
Last echo 05/2025 EF 50-55%
On Farxiga furosemide metoprolol Entresto
- Continue Entresto
- Continue furosemide
- Continue Farxiga
- Continue beta-antonio
Permanent A-fib
On Pradaxa
s/p ablation
- Resume pradaxa
- Continue heparin drip
#Respiratory
O2 requirements:
Sedation:
Home O2:
Blood gas:
AYALA
on CPAP nightly
-CPAP 8
#Gastrointestinal
Diet: diabetic
Stooling regimen:
Tubes: None
Antiemetics:
GI PPx: Pantoprazole 40
Hyperlipidemia
-Continue rosuvastatin
-Continue Zetia
-Continue gemfibrozil
-per cards start repatha OP
#Renal
Geller: Yes
Urine output: 80 mL/h
IVF: NSS at 80
Electrolytes: K>4 Mg>2
Na 137
K 4.8
Mag
#Infectious
WBC 9.3
ABX:
Microbiology:
Antipyretics: tylenol prn
#Hematologic
DVT PPx: Heparin drip
Hemoglobin: 12.6
PT
INR
PTT pending
#Endocrine
Maintain euglycemia with goal BG 140�180
Diabetes type 2
-hold metformin
-continue glimepiride
- ISS moderate
Hypothyroidism
-continue levothyroxine
#
#Access
Central:
None
Peripheral:
Left arm 20-gauge
CODE STATUS: Full code
Subjective Dataa
Subjective Data
Date of Service:
Saw patient at bedside this morning reports doing well with no ongoing chest pain shortness of breath. Episode of chest pain yesterday 10/19 that resolved with nitro. Reports feeling his heart rate increased prior to onset of chest pain. This
morning has no nausea vomiting abdominal pain or pain with urination. Date of Service: June 04, 2025
Objective Data
Data Reviewed
Vital Signs / I&O / Oxygen:
Vital Signs
Temp Pulse Resp BP Pulse Ox
98.3 F 72 16 135/69 96
06/04/25 08:13 06/04/25 08:02 06/04/25 06:00 06/04/25 08:02 06/04/25 06:00
Intake and Output
06/03/25 06/04/25 06/05/25
06:59 06:59 06:59
Intake Total 1115.2 / 1115.2
Output Total 1850 / 1850
Balance -734.8 / -734.8
SaO2 96
Nasal Cannula flow liters per 2
minute
Physical Exam
General: Comfortable
HEENT: Normocephalic
Cardiovascular: S1-S2 and Regular Rhythm
Respiratory: Clear and Non-Labored Respirations
GI: Soft, Non Distended and Non Tender
Neurology: Awake and Alert
Skin: Warm and Dry
Labs/Micro/Reports
Lab Data
06/04/25 04:01
06/04/25 04:01
Laboratory Results
06/03/25 06/03/25 06/03/25
10:22 14:30 16:31
APTT Cancelled Cancelled 51.7 H
06/03/25
23:15
APTT Cancelled
--- NOTE | 2025-06-04 08:45 | W.PN.CD ---
Addendum entered and electronically signed by Thony Love MD 06/04/25 10:42:
Discussed case with interventional cardiology. No need for heparin but will monitor for 24 hours. LVEDP high in the lab. Will give Lasix x1.
Original Note:
Today's Communication / Plan
-
Trend troponin to peak
Heparin for 24-48h
Titrate nitro to off
Impression / Plan
-
70-year-old male with coronary artery disease (CABG 2008, STEMI GORAN-OM1 2022), chronic HFrEF/ischemic cardiomyopathy (LVEF 35-40%),�severe aortic stenosis status-post TAVR (2022), apical HCM with VF arrest s/p Medtronic subcutaneous ICD (2020),
paroxysmal atrial fibrillation s/p A-fib ablation (with Dr. Dixon on 03/31/2025), TAYLA thrombus, hypertension, hyperlipidemia, diabetes, peripheral arterial disease and mild obesity.� Patient underwent intravascular lithotripsy to left distal
anterior tibial artery on 06/03. Following procedure, he developed chest pain with ECG changes and was taken for C which showed severe CAD with no culprit lesion concerning for ACS.
Type II CO
- Suspect supply-demand mismatch in the setting of severe coronary artery disease and increased demand (surgery, tachycardia, hypertension). LHC with no culprit lesion for ACS.
- Troponin 0.435 -> 7.28. Trend to peak
- Continue heparin for 24-48 hours
- Titrate nitro drip off
- Continue BB, statin, ezetimibe
CAD/CABG:
- LHC 06/03/2025: Patent BAILEY-LAD, patent [id number]-proxOM, hazy 80 to 90% stenosis at the proximal edge of OM stent with diffuse in-stent restenosis, no evidence of ACS/clot, SVG-distal OM with 40% ostial stenosis
- Treatment of type II CO as above
- We will add PCSK9 inhibitor as an outpatient
- Continue aspirin, dabigatran, metoprolol, rosuvastatin, and ezetimibe. We will send him home with [facility] as well.
Ischemic cardiomyopathy with improved ejection fraction (LVEF 30-35% -> 50-55%)
- Compensated on examination. Continue home PO Lasix 20mg daily
- Continue home GDMT with metoprolol, Entresto, and SGLT2 inhibitor
TAVR (2022):
- Clinically stable.
ICD:
- Stable.
PAF:
- Stable status-post ablation (03/31/2025).
- Resume home dabigatran
Hypertension:
- Blood pressure was notably elevated earlier; now improved.
- Monitor on home regimen
Subjective: Patient is chest pain-free. He denies any CV complaints. He would like to go home for [place] of possible.
Physical Exam
Vital Signs/Labs
Vital Signs
Temp Pulse Resp BP Pulse Ox
98.3 F 72 16 135/69 96
06/04/25 08:13 06/04/25 08:02 06/04/25 06:00 06/04/25 08:02 06/04/25 06:00
06/03/25 06/04/25 06/05/25
06:59 06:59 06:59
Actual Weight 170 lb 6.677 oz 170 lb 3.15 oz
06/04/25 04:01
06/04/25 04:01
PT 14.9 Sec (11.4-14.6) H 06/03/25 06:48
INR 1.16 06/03/25 06:48
APTT Cancelled 06/03/25 23:15
LAB Results
06/03/25
20:40
Troponin I 0.435 H*
Physical Exam
Constitutional: No acute distress and Comfortable
Cardiovascular: Rhythm & rate is regular, Pedal edema is absent, Systolic murmur present, S1S2 is normal and Other (dopplerable pedal pulses)
Respiratory: Respiratory effort normal and Lungs clear to auscul.
Neuro/Psych: AO x 3
Other: Cath Site (bilateral groins, soft, non-tender, no ecchymosis or erythema)
Data Reviewed
-
Date of Service: June 04, 2025
Medical Decision Making: Reviewed Test Results, Test Interpretation and Review of Case with other Provider
EKG: Tracing Personally Visualized and interpreted
Echo: Report Reviewed by me
Labs: Labs Reviewed by me
[2025-06-04 09:14] LABS: Troponin I 7.280 ng/ml
[2025-06-04 10:24] LABS: APTT 51.7 Sec (23.4-35.0)
--- NOTE | 2025-06-04 10:57 | PTCARENOTE ---
Heparin D/c; Dabigatran restarted
[2025-06-04] MEDS: LASIX 40 MG IV (11:07)
[2025-06-04] MEDS: PRADAXA 150 MG PO ×2 (11:11→21:35)
--- NOTE | 2025-06-04 11:27 | CM ---
Chart reviewed and spoke with pt at ICU bedside
He lives with in 1 SH
Independent with ADLs and ambulation
Drives
DME CPAP
PCP Karyn Conti
[facility] in [facility]
no hx of VN nor SNF
DCP is to go home no needs
can pick him up at DC
Cmwill continue to follow up for dcp needs
[2025-06-04 13:59] LABS: Glucose - Point of Care 165 mg/dl (70-99)
--- NOTE | 2025-06-04 15:43 | PTCARENOTE ---
Transfer:
patient transfer to room 2119. Will be transfer via w/c. Report given to Sridevi
At time of transfer pt:
> Awake and oriented x 3 Denies pain
-Normal Sinus Rhythm 68;,BP 127/60 MAO 77; Murmur 2/6 S1/S2
-lungs clear; denies SOB; SpO2 95% RA
-Abdomen soft non-tender Bowel sound present through
-Voiding in a urinal clear yellow urine. I/O monitoring
-Doppler pedal post tibia pulses present ; Left and Right femoral puncture site post cath covered [place] and Tegaderm dry and intact
-pt will be transfer to 2S via w/c. pt will let his know regarding his transfer
[2025-06-04 16:16] LABS: Troponin I 7.960 ng/ml
--- NOTE | 2025-06-04 16:44 | PTCARENOTE ---
Received patient from ICU via wheelchair around 1600 in stable condition. Troponin result from [address] Love made aware. Dr. Love said to continue to trend troponins but does not need to be reported unless over 10.
[2025-06-04 17:09] LABS: Glucose - Point of Care 234 mg/dl (70-99)
[2025-06-04] MEDS: NOVOLOG FLEXPEN-MODERATE RESISTANCE 3 UNITS SC (17:33)
[2025-06-04] MEDS: CRESTOR 40 MG PO (21:35)
[2025-06-04 21:53] LABS: Glucose - Point of Care 186 mg/dl (70-99)
[2025-06-04 22:26] LABS: Troponin I 6.390 ng/ml
[2025-06-05 03:20] VITALS: BP 152/67
[2025-06-05 04:49] LABS: Troponin I 4.900 ng/ml
[2025-06-05] MEDS: SYNTHROID 125 MCG PO (05:33)
[2025-06-05 05:35] VITALS: BMI 27.8
[2025-06-05 07:50] VITALS: BP 134/71
[2025-06-05 07:50] LABS: Glucose - Point of Care 129 mg/dl (70-99)
[2025-06-05] MEDS: NOVOLOG FLEXPEN-MODERATE RESISTANCE SC (08:03)
--- NOTE | 2025-06-05 08:20 | W.PN.VS ---
Today's Communication / Plan
-
ok to go home if cleared by cards
Assessment/Plan
-
Postop day 2 left lower extremity arteriogram with intervention
Postop day 1.5 diagnostic cardiac cath
Plan:
Follow-up lactic acid, troponin
Out of bed/ambulate with help
ok for discharge from vasc standpoint - will wait for troponin and cards recs for discharge
will place discharge order to occur IF cleared by cards
Subjective Data
-
Date of Service: June 05, 2025
Patient feeling well today
no complaints
no leg pain
no chest pain
would like to go home if possible
Objective Data
-
Vital Signs
Temp Pulse Resp BP Pulse Ox
98.5 F 76 16 134/71 97
06/05/25 07:50 06/05/25 07:50 06/05/25 07:50 06/05/25 07:50 06/05/25 07:50
Intake and Output
06/04/25 06/05/25 06/06/25
06:59 06:59 06:59
Intake Total 1115.2 / 1132.2 1850
Output Total 1850 / 1850 1000 / 1000
Balance -734.8 / -717.8 851 / 851
Intake:
Oral fluids 720 / 720 1800 / 1800
IV fluids (Total) 395.2 / 412.2
Nss 1,000 ml @ 80 mls/hr IV . 160 / 160
[id number] FRANCHESCA Rx#:[id number]
heparin 223.2 / 240.2
nitro 12.0 / 12.0
Output:
Urine, Voided 1850 / 1850 1000 / 1000
Other:
Number of approximated MODERATE 2
amounts of urine
Number of approximated LARGE 1
amounts of urine
Lab Results
06/04/25 04:01
Calcium 8.2 mg/dl (8.4-10.2) L 06/04/25 04:01
Total Bilirubin 0.6 mg/dl (0.2-1.3) 06/03/25 20:40
Direct Bilirubin 0.3 mg/dl (0.0-0.4) 06/03/25 20:40
AST 30 U/L (17-59) 06/03/25 20:40
ALT 32 U/L (0-50) 06/03/25 20:40
Alkaline Phosphatase 60 U/L (38-126) 06/03/25 20:40
Total Protein 8.0 g/dl (6.3-8.2) 06/03/25 20:40
Albumin 4.9 g/dl (3.5-5.0) 06/03/25 20:40
Physical Exam
-
rrr
ctab
groins intact
feet warm bilaterally
no edema
[2025-06-05] MEDS: FARXIGA 10 MG PO (08:34)
[2025-06-05] MEDS: ENTRESTO 24 MG/26 MG 1 TAB PO (08:34)
[2025-06-05] MEDS: AMARYL 2 MG PO (08:34)
[2025-06-05] MEDS: THERAGRAN 1 TABLET PO (08:34)
[2025-06-05] MEDS: TOPROL XL 100 MG PO (08:34)
[2025-06-05] MEDS: LASIX 20 MG PO (08:35)
[2025-06-05] MEDS: ZETIA 10 MG PO (08:35)
[2025-06-05] MEDS: PROTONIX 40 MG PO (08:35)
[2025-06-05] MEDS: PRADAXA 150 MG PO (08:36)
[2025-06-05] MEDS: LOW STRENGTH ASPIRIN 81 MG PO (08:37)
--- NOTE | 2025-06-05 09:46 | CM ---
patient seen at bedside
IMM explained & signed. In chart
discharge today
PLAN: Home no needs
to transport at 1pm
[2025-06-05 09:58] LABS: Hematocrit 36.7 % (39.0-52.0); Hemoglobin 12.6 g/dL (13.0-18.0); Mean Corp Hgb Conc. 34.3 g/dL (33.0-37.0); Mean Corpuscular Volume 89.3 fL (80.0-94.0); Platelet Count 182 10^3/uL (130-400); Red Cell Dist. Width 15.7 % (11.5-14.5)
[2025-06-05 10:26] LABS: Troponin I 3.460 ng/ml
--- NOTE | 2025-06-05 10:28 | W.PN.CD ---
Today's Communication / Plan
-
- Stable for discharge
Impression / Plan
-
70-year-old male with coronary artery disease (CABG 2008, STEMI GORAN-OM1 2022), chronic HFrEF/ischemic cardiomyopathy (LVEF 35-40%),�severe aortic stenosis status-post TAVR (2022), apical HCM with VF arrest s/p [employer] subcutaneous ICD (2020),
paroxysmal atrial fibrillation s/p A-fib ablation (with Dr. Dixon on 03/31/2025), TAYLA thrombus, hypertension, hyperlipidemia, diabetes, peripheral arterial disease and mild obesity.� Patient underwent intravascular lithotripsy to left distal
anterior tibial artery on 06/03. Following procedure, he developed chest pain with ECG changes and was taken for C which showed severe CAD with no culprit lesion concerning for ACS.
Type II GA
- Suspect supply-demand mismatch in the setting of severe coronary artery disease and increased demand (surgery, tachycardia, hypertension). LHC with no culprit lesion for ACS.
- Troponin 0.435 -> 7.28 peaked - this AM 3.46
- Off heparin now
- Continue BB, statin, ezetimibe
- Plan for optimization as an outpatient. Likely addition of PCSK9 inhibitor as an outpatient
CAD/CABG:
- C 06/03/2025: Patent BAILEY-LAD, patent SVG-proxOM, hazy 80 to 90% stenosis at the proximal edge of OM stent with diffuse in-stent restenosis, no evidence of ACS/clot, SVG-distal OM with 40% ostial stenosis
- Treatment of type II GA as above
- We will add PCSK9 inhibitor as an outpatient
- Continue aspirin, dabigatran, metoprolol, rosuvastatin, and ezetimibe. We will send him home with sonya as well.
Ischemic cardiomyopathy with improved ejection fraction (LVEF 30-35% -> 50-55%)
- Compensated on examination. Continue home PO Lasix 20mg daily
- Continue home GDMT with metoprolol, Entresto, and SGLT2 inhibitor
TAVR (2022):
- Clinically stable.
ICD:
- Stable.
PAF:
- Stable status-post ablation (03/31/2025).
- Resume home dabigatran
Hypertension:
- Blood pressure was notably elevated earlier; now improved.
- Monitor on home regimen
Subjective: Patient is chest pain-free. He denies any CV complaints.
Physical Exam
Vital Signs/Labs
Vital Signs
Temp Pulse Resp BP Pulse Ox
98.5 F 76 16 134/71 97
06/05/25 07:50 06/05/25 08:34 06/05/25 07:50 06/05/25 08:34 06/05/25 07:50
06/04/25 06/05/25 06/06/25
06:59 06:59 06:59
Actual Weight 77.2 kg 76.839 kg
06/05/25 09:52
06/04/25 04:01
PT 14.9 Sec (11.4-14.6) H 06/03/25 06:48
INR 1.16 06/03/25 06:48
APTT 51.7 Sec (23.4-35.0) H 06/04/25 10:06
LAB Results
06/03/25 06/04/25 06/04/25
20:40 08:34 09:45
Troponin I 0.435 H* 7.280 H* Cancelled
06/04/25 06/04/25 06/05/25
15:24 21:52 03:59
Troponin I 7.960 H* 6.390 H* 4.900 H*
06/05/25
09:52
Troponin I 3.460 H* D
Physical Exam
Constitutional: No acute distress and Comfortable
EENT: Anicteric and Moist mucous membranes
Cardiovascular: Rhythm & rate is regular and Pedal edema is absent
Respiratory: Respiratory effort normal and Lungs clear to auscul.
GI: Soft, Distention absent and Non tender
Neuro/Psych: Alert, AO x 3 and Motor deficits absent
Data Reviewed
-
Date of Service: June 05, 2025
Medical Decision Making: Reviewed Test Results, Test Interpretation and Review of Case with other Provider
EKG: Tracing Personally Visualized and interpreted
Echo: Report Reviewed by me
Labs: Labs Reviewed by me
Old Records: Reviewed
[2025-06-05 11:16] VITALS: BP 125/54
== END 2025-06-05 12:53 | disposition home or self-care (01) | DRG 278 ==
LOC: 2 SOUTH 14:53
PROVIDERS: Internal Medicine Interventional Cardiology; Nurse Practitioner; Nurse Practitioner Family; Nurse Practitioner Primary Care; Student in an Organized Health Care Education/Training Program; ADMITTING PHYSICIAN Surgery Vascular Surgery; CONSULT PHYSICIAN Internal Medicine; CONSULT PHYSICIAN Internal Medicine Critical Care Medicine; PRIMARYCARE PHYSICIAN Student in an Organized Health Care Education/Training Program
PROC: B2131ZZ Fluoroscopy of Multiple Coronary Artery Bypass Grafts using Low Osmolar Contrast (ICD-10-PCS; 2025-06-03)
PROC: 047Q3ZZ Dilation of Left Anterior Tibial Artery, Percutaneous Approach (ICD-10-PCS; 2025-06-03)
PROC: 047W3ZZ Dilation of Left Foot Artery, Percutaneous Approach (ICD-10-PCS; 2025-06-03)
PROC: B2111ZZ Fluoroscopy of Multiple Coronary Arteries using Low Osmolar Contrast (ICD-10-PCS; 2025-06-03)
PROC: B41D1ZZ Fluoroscopy of Aorta and Bilateral Lower Extremity Arteries using Low Osmolar Contrast (ICD-10-PCS; 2025-06-03)
PROC: B2181ZZ Fluoroscopy of Left Internal Mammary Bypass Graft using Low Osmolar Contrast (ICD-10-PCS; 2025-06-03)
PROC: 047L3EZ Dilation of Left Femoral Artery with Two Intraluminal Devices, Percutaneous Approach (ICD-10-PCS; 2025-06-03)
PROC: 4A033BC Measurement of Arterial Pressure, Coronary, Percutaneous Approach (ICD-10-PCS; 2025-06-03)
PROC: 04FQ3ZZ Fragmentation of Left Anterior Tibial Artery, Percutaneous Approach (ICD-10-PCS; 2025-06-03)
PROC: 4A023N7 Measurement of Cardiac Sampling and Pressure, Left Heart, Percutaneous Approach (ICD-10-PCS; 2025-06-03)
PROC: 5A09357 Assistance with Respiratory Ventilation, Less than 24 Consecutive Hours, Continuous Positive Airway Pressure (ICD-10-PCS; 2025-06-04)
DX: E11.51 Type 2 diabetes mellitus with diabetic peripheral angiopathy without gangrene (principal); I21.A1 Myocardial infarction type 2; I48.92 Unspecified atrial flutter; I50.22 Chronic systolic (congestive) heart failure; I48.21 Permanent atrial fibrillation; L97.521 Non-pressure chronic ulcer of other part of left foot limited to breakdown of skin; I70.245 Atherosclerosis of native arteries of left leg with ulceration of other part of foot; L03.032 Cellulitis of left toe; I25.10 Atherosclerotic heart disease of native coronary artery without angina pectoris; I11.0 Hypertensive heart disease with heart failure; E78.00 Pure hypercholesterolemia, unspecified; E03.9 Hypothyroidism, unspecified; G47.33 Obstructive sleep apnea (adult) (pediatric); E11.621 Type 2 diabetes mellitus with foot ulcer; E11.41 Type 2 diabetes mellitus with diabetic mononeuropathy; I25.5 Ischemic cardiomyopathy; I70.8 Atherosclerosis of other arteries; E66.9 Obesity, unspecified; I25.2 Old myocardial infarction; Z68.27 Body mass index [BMI] 27.0-27.9, adult; Z79.4 Long term (current) use of insulin; Z79.82 Long term (current) use of aspirin; Z79.899 Other long term (current) drug therapy; Z86.74 Personal history of sudden cardiac arrest; Z87.891 Personal history of nicotine dependence; Z95.3 Presence of xenogenic heart valve; Z95.1 Presence of aortocoronary bypass graft; Z95.5 Presence of coronary angioplasty implant and graft; Z95.810 Presence of automatic (implantable) cardiac defibrillator
CPT/HCPCS: 37226; 71045; 75625; 75710; 80048; 80053; 82248; 82962; 83605; 84484; 85027; 85379; 85610; 85730; 93005; 93459; 94660; C1725; C1760; C1769; C1874; C1894; C9772; G0278; Q9967